=== PATIENT | male | born 1975 | race Caucasian/White ===

== ENCOUNTER 2016-03-05 13:31 | Emergency (ER) | payer MEDICAID ==
[2016-03-05] MEDS ORDERED: IBUPROFEN 800 MG TABLET PO STA (13:55)
[2016-03-05] MEDS ORDERED: IBUPROFEN 800 MG TABLET PO ONE (13:59)
[2016-03-05] MEDS ORDERED: AZITHROMYCIN 250 MG TABLET PO STA (14:51)
[2016-03-05] MEDS ORDERED: AZITHROMYCIN 250 MG TABLET PO ONE (14:58)
== END 2016-03-05 15:07 | disposition home or self-care (01) ==
DX: J18.9 Pneumonia, unspecified organism (principal); F17.210 Nicotine dependence, cigarettes, uncomplicated
CPT/HCPCS: 71020; 99283; 99284; A9270

== ENCOUNTER 2016-04-05 11:04 | Emergency (ER) | payer MEDICAID | END 2016-04-05 13:12 | disposition home or self-care (01) | DX: R05 Cough (principal) ==

== ENCOUNTER 2016-07-08 19:33 | Outpatient (CLI) | payer MEDICAID | END 2016-07-08 19:34 | disposition critical access hospital (66) | DX: R10.33 Periumbilical pain (principal); R11.2 Nausea with vomiting, unspecified | CPT/HCPCS: A0425; A0427 ==

== ENCOUNTER 2016-07-08 19:58 | Observation (INO) | payer MEDICAID ==
--- NOTE | 2016-07-08 20:14 | ED Physician Documentation ---
PD HPI ABD PAIN - Stated complaint Stated Complaint: ABD PAIN - Chief complaint Chief Complaint: Abd Pain - History obtained from History obtained from: Patient, EMS - History of Present Illness Timing - onset: How many days ago (3) Timing - duration: Days (3) Timing - details: Intermittant Pain level max: 10 Pain level now: 0 Quality: Pain Location: Periumbilical Radiation: Other (non-radiating) Improved by: Other (nothing) Worsened by: Other (nothing) Associated symptoms: Nausea, Vomiting (states feels like he wants to vomit, but "my neck just swells"). No: Fever Similar symptoms before: Has not had sx before Recently seen: Not recently seen Review of Systems Ten Systems: 10 systems reviewed and negative Constitutional: denies: Fever, Chills Nose: denies: Rhinorrhea / runny nose, Congestion Throat: denies: Sore throat Respiratory: denies: Cough GI: reports: Abdominal Pain, Nausea, Vomiting. denies: Diarrhea Skin: denies: Rash Musculoskeletal: denies: Neck pain, Back pain Neurologic: denies: Focal weakness, Numbness, Confused, Altered mental status, Headache PD PAST MEDICAL HISTORY - Past Medical History Past Medical History: Yes Cardiovascular: None Respiratory: Pneumonia Neuro: Fainting Endocrine/Autoimmune: None Musculoskeletal: Chronic back pain - Past Surgical History Past Surgical History: No - Present Medications Home Medications: Ambulatory Orders Medication Instructions Recorded Confirmed Azithromycin [Zithromax] 250 mg PO DAILY #6 tablet 03/05/16 Benzonatate [Tessalon] 100 mg PO TID PRN #20 capsule 04/05/16 guaiFENesin/DEXTROMETHORPHAN 10 ml PO Q6H PRN #120 ml 04/05/16 [Robitussin Dm] - Allergies Allergies/Adverse Reactions: Allergies Allergy/AdvReac Type Severity Reaction Status Date / Time divalproex sodium Allergy Unknown Verified 03/21/14 13:01 [From Depakote] phenytoin sodium * Allergy Unknown Verified 11/05/13 09:19 [From Dilantin] phenytoin sodium extended * Allergy Unknown Verified 11/05/13 09:19 [From Dilantin] - Social History Does the pt smoke?: Yes Smoking Status: Current every day smoker Does the pt drink ETOH?: No Does the pt have substance abuse?: No - Immunizations Immunizations are current?: No Immunizations: TDAP >10years/unknown - POLST Patient has POLST: No PD ED PE NORMAL - Vitals Vital signs reviewed: Yes - General General: Alert and oriented X 3, No acute distress, Well developed/nourished - HEENT HEENT: Moist mucous membranes - Neck Neck: Supple, no meningeal sign - Cardiac Cardiac: RRR, Strong equal pulses - Respiratory Respiratory: No respiratory distress, Clear bilaterally - Abdomen Abdomen: Soft, Non tender, Non distended - Back Back: No CVA TTP, No spinal TTP - Derm Derm: Warm and dry, No rash - Extremities Extremities: No edema - Neuro Neuro: Alert and oriented X 3 - Psych Psych: Normal mood, Normal affect Results - Vitals Vitals: Vital Signs - 24 hr 07/08/16 07/08/16 19:59 22:29 Temperature 37.1 C Heart Rate 80 75 Respiratory 18 18 Rate Blood Pressure 140/70 H 128/80 O2 Saturation 95 97 Oxygen O2 Source Room air - Labs Labs: Laboratory Tests 07/08/16 07/08/16 07/08/16 20:20 20:20 20:20 WBC 8.3 RBC 4.96 Hgb 14.7 Hct 44.3 MCV 89.2 MCH 29.6 MCHC 33.2 RDW 15.6 H Plt Count 287 MPV 8.1 Neut # 3.4 Lymph # 2.9 [place] # 1.0 Eos # 0.9 H Baso # 0.1 Absolute Nucleated RBC 0.00 Nucleated RBCs 0.0 PT 13.0 H INR 1.2 APTT 29.0 Sodium 140 Potassium 3.8 Chloride 105 Carbon Dioxide 28 Anion Gap 7.0 BUN 13 Creatinine 1.0 Estimated GFR (MDRD) 82 L Glucose 101 H Calcium 8.8 Total Bilirubin 2.8 H Direct Bilirubin AST 1236 H ALT 2120 H Alkaline Phosphatase 138 H Lactate Dehydrogenase Total Protein 5.8 L Albumin 3.6 Globulin 2.2 Albumin/Globulin Ratio 1.6 Lipase 33 Urine Color Urine Clarity Urine pH Ur Specific [place] Urine Protein Urine Glucose (UA) Urine Ketones Urine Occult Blood Urine Nitrite Urine Bilirubin Urine Urobilinogen Ur Leukocyte Esterase Ur Microscopic Review Urine Culture Comments Urine Opiates Screen Ur Oxycodone Screen Urine Methadone Screen Ur Propoxyphene Screen Acetaminophen Ur Barbiturates Screen Ur Tricyclics Screen Ur Phencyclidine Scrn Ur Amphetamine Screen U Methamphetamines Scrn U Benzodiazepines Scrn Urine Cocaine Screen U Cannabinoids Screen Ethyl Alcohol 07/08/16 07/08/16 07/08/16 20:20 22:30 22:30 WBC RBC Hgb Hct MCV MCH MCHC RDW Plt Count MPV Neut # Lymph # [place] # Eos # Baso # Absolute Nucleated RBC Nucleated RBCs PT INR APTT Sodium Potassium Chloride Carbon Dioxide Anion Gap BUN Creatinine Estimated GFR (MDRD) Glucose Calcium Total Bilirubin Direct Bilirubin AST ALT Alkaline Phosphatase Lactate Dehydrogenase 407 H Total Protein Albumin Globulin Albumin/Globulin Ratio Lipase Urine Color DARK YELLOW Urine Clarity CLEAR Urine pH 7.0 Ur Specific [place] 1.015 Urine Protein NEGATIVE Urine Glucose (UA) NEGATIVE Urine Ketones NEGATIVE Urine Occult Blood NEGATIVE Urine Nitrite NEGATIVE Urine Bilirubin SMALL H Urine Urobilinogen 4 H Ur Leukocyte Esterase NEGATIVE Ur Microscopic Review NOT INDICATED Urine Culture Comments NOT INDICATED Urine Opiates Screen NEGATIVE Ur Oxycodone Screen NEGATIVE Urine Methadone Screen NEGATIVE Ur Propoxyphene Screen NEGATIVE Acetaminophen Ur Barbiturates Screen NEGATIVE Ur Tricyclics Screen NEGATIVE Ur Phencyclidine Scrn NEGATIVE Ur Amphetamine Screen POSITIVE H U Methamphetamines Scrn NEGATIVE U Benzodiazepines Scrn NEGATIVE Urine Cocaine Screen NEGATIVE U Cannabinoids Screen NEGATIVE Ethyl Alcohol 07/08/16 22:35 WBC RBC Hgb Hct MCV MCH MCHC RDW Plt Count MPV Neut # Lymph # [place] # Eos # Baso # Absolute Nucleated RBC Nucleated RBCs PT INR APTT Sodium Potassium Chloride Carbon Dioxide Anion Gap BUN Creatinine Estimated GFR (MDRD) Glucose Calcium Total Bilirubin Direct Bilirubin 1.7 H AST ALT Alkaline Phosphatase Lactate Dehydrogenase Total Protein Albumin Globulin Albumin/Globulin Ratio Lipase Urine Color Urine Clarity Urine pH Ur Specific [place] Urine Protein Urine Glucose (UA) Urine Ketones Urine Occult Blood Urine Nitrite Urine Bilirubin Urine Urobilinogen Ur Leukocyte Esterase Ur Microscopic Review Urine Culture Comments Urine Opiates Screen Ur Oxycodone Screen Urine Methadone Screen Ur Propoxyphene Screen Acetaminophen < 10 L Ur Barbiturates Screen Ur Tricyclics Screen Ur Phencyclidine Scrn Ur Amphetamine Screen U Methamphetamines Scrn U Benzodiazepines Scrn Urine Cocaine Screen U Cannabinoids Screen Ethyl Alcohol < 5.0 - Rads (name of study) CT abd/pelvis Radiology: Prelim report reviewed, EMP read contemporaneously, See rad report ( Normal abdomen pelvis CT) RUQ US Radiology: Prelim report reviewed, EMP read contemporaneously, See rad report ( Contracted gallbladder without cholecystitis. Increased echogenicity and fatty liver) PD MEDICAL DECISION MAKING - ED course Complexity details: reviewed results, re-evaluated patient, considered differential, d/w patient, d/w transformation consultant ED course: Patient is a 40-year-old male who presents to the emergency department with 3 days of abdominal pain. Found to have significantly elevated liver function tests. No acute findings on CT. No acute findings on ultrasound. Unclear etiology of the hepatitis, possibly viral? He denies any IV drug use to me. Denies any drug use at all. He did begin to vomit in the emergency department and feels better after Zofran. IV fluids given. Will admit the patient for further evaluation and care of his acute liver toxicity. Discussed the case with Dr. Francis, hospitalist who accepts. This document was made in part using voice recognition software. While efforts are made to proofread this document, sound alike and grammatical errors may occur. Departure - Departure Disposition: 66 [facility] DC/Xfer Clinical Impression: Elevated liver enzymes, Hepatitis Abdominal pain Qualifiers: Abdominal location: epigastric Qualified Code(s): R10.13 - Epigastric pain Vomiting Qualifiers: Vomiting type: unspecified Vomiting Intractability: non-intractable Nausea presence: with nausea Qualified Code(s): R11.2 - Nausea with vomiting, unspecified Condition: Stable
[2016-07-08 20:34] LABS: BASOPHILS # (AUTO) 0.1 10^3/uL (0.0-0.1); BASOPHILS % (AUTO) 0.8 %; EOSINOPHILS # (AUTO) 0.9 10^3/uL (0.0-0.7); EOSINOPHILS % (AUTO) 10.3 %; HCT - HEMATOCRIT 44.3 % (42.0-52.0); HGB - HEMOGLOBIN 14.7 g/dL (14.0-18.0); LYMPHOCYTES # (AUTO) 2.9 10^3/uL (1.5-3.5); LYMPHOCYTES % (AUTO) 35.6 %; MEAN CORPUSCULAR HEMOGLOBIN 29.6 pg (27.0-31.0); MEAN CORPUSCULAR HGB CONC 33.2 g/dL (32.0-36.0); MEAN CORPUSCULAR VOLUME 89.2 fL (80.0-94.0); MEAN PLATELET VOLUME 8.1 fL (7.4-11.4); MONOCYTES % (AUTO) 12.1 %; NEUTROPHILS # (AUTO) 3.4 10^3/uL (1.5-6.6); NEUTROPHILS % (AUTO) 41.2 %; RED BLOOD COUNT 4.96 10^6/uL (4.70-6.10); RED CELL DISTRIBUTION WIDTH 15.6 % (12.0-15.0); UNCORRECTED WHITE BLOOD COUNT 8.3 x10^3/uL; WHITE BLOOD COUNT 8.3 x10^3/uL (4.8-10.8)
[2016-07-08 20:49] LABS: ALBUMIN/GLOBULIN RATIO 1.6 (1.0-2.2); BILIRUBIN,TOTAL 2.8 mg/dL (0.2-1.0); CALCIUM 8.8 mg/dL (8.5-10.3); POTASSIUM 3.8 mmol/L (3.5-5.0); TOTAL PROTEIN 5.8 g/dL (6.7-8.2)
[2016-07-08] MEDS ORDERED: IOPAMIDOL-300 100 ML VIAL IVP ONE (21:11)
--- NOTE | 2016-07-08 21:29 | CT Preliminary Report ---
Exam: CT Abdomen/Pelvis W/ IMPRESSION: Normal abdomen and pelvis CT. [facility] SITE ID: [id number]
--- NOTE | 2016-07-08 21:32 | CT Report ---
EXAM: CT ABDOMEN AND PELVIS EXAM DATE: 07/08/2016 09:11 PM. CLINICAL HISTORY: Periumbilical pain x3 days. COMPARISONS: None. TECHNIQUE: Routine helical CT imaging was performed through the abdomen and pelvis. IV contrast: 100 mL Isovue-300. Enteric contrast: No. Reconstructions: Coronal and sagittal. In accordance with CT protocol optimization, one or more of the following dose reduction techniques w ere utilized for this exam: automated exposure control, adjustment of mA and/or KV based on patient s ize, or use of iterative reconstructive technique. FINDINGS: Lung Bases: Unremarkable. Liver: Normal. No masses. Gallbladder/Bile Ducts: Unremarkable. Spleen: Normal. Pancreas: Normal. Adrenal Glands: Normal. Kidneys: Normal. No masses or hydronephrosis. Peritoneal Cavity/Bowel: Normal. No free fluid, free air or adenopathy. No masses or acute inflammato ry process. The appendix is well visualized and normal. Pelvic Organs: Normal. The bladder and visualized pelvic organs are within normal limits. Vasculature: No aneurysms or other significant abnormality. Bones: No significant abnormality. Other: None. IMPRESSION: Normal abdomen and pelvis CT. [facility] Referring Provider Line: [phone] SITE ID: [id number]
[2016-07-08 22:36] LABS: INR 1.2 (0.8-1.2)
[2016-07-08] MEDS ORDERED: SODIUM CHLORIDE 0.9% 1,000 ML IV ONE ×2 (22:47)
[2016-07-08] MEDS ORDERED: KETOROLAC 60 MG/2 ML VIAL IVP STA (22:47)
[2016-07-08] MEDS ORDERED: KETOROLAC 30 MG/ML VIAL ONE (22:50)
[2016-07-08 22:55] LABS: BILIRUBIN,URINE SMALL (NEGATIVE); UA CHARGE (STRIP ONLY) YES; UR CULTURE IF IND NOT INDICATED
[2016-07-08] MEDS ORDERED: ONDANSETRON 4 MG/2 ML VIAL ONE (22:56)
[2016-07-08] MEDS ORDERED: ONDANSETRON 4 MG/2 ML VIAL IVP STA (22:56)
[2016-07-08 22:57] LABS: BILIRUBIN,DIRECT 1.7 mg/dL (0.1-0.5)
[2016-07-08 23:02] LABS: ACETAMINOPHEN < 10 ug/mL (10-30)
--- NOTE | 2016-07-09 00:06 | Ultrasound Report ---
EXAM: ABDOMEN ULTRASOUND LIMITED, RUQ EXAM DATE: 07/08/2016 11:40 PM. CLINICAL HISTORY: RUQ pain, abnormal LFTs. COMPARISON: CT, 07/08/2016. TECHNIQUE: Real-time scanning was performed with static images obtained. FINDINGS: Liver: Echogenic, consistent with fatty infiltration. 16.7 cm. Main portal vein flow: Hepatopetal. Gallbladder: Contracted. No stones, definite wall thickening, or sonographic Vann's sign. Patient h ad been medicated. Biliary System: CBD measures 3.8 mm. No intrahepatic or extrahepatic ductal dilatation. Other: Right kidney measures 11.0 cm and appears normal. IMPRESSION: 1. Gallbladder is contracted but otherwise grossly unremarkable. No cholecystitis identified. 2. Common duct caliber is normal. 3. Fatty liver. [facility] Referring Provider Line: [phone] SITE ID: [id number]
[2016-07-09] MEDS ORDERED: ONDANSETRON 4 MG/2 ML VIAL IVP PRN (00:28)
[2016-07-09] MEDS ORDERED: SODIUM CHLORIDE FLUSH 0.9% 10 ML SYRINGE IVP PRN (00:28)
[2016-07-09] MEDS: SODIUM CHLORIDE 0.9% 1,000 ML IV SCH ×2 (00:49→07:21)
[2016-07-09] MEDS: FAMOTIDINE 20 MG/50 ML 50 ML IV SCH ×2 (01:50→08:52)
[2016-07-09 02:36] LABS: INR 1.2 (0.8-1.2); PT - PROTHROMBIN TIME 13.8 secs (9.9-12.6)
[2016-07-09 02:37] LABS: BASOPHILS # (AUTO) 0.1 10^3/uL (0.0-0.1); BASOPHILS % (AUTO) 1.3 %; EOSINOPHILS # (AUTO) 0.9 10^3/uL (0.0-0.7); EOSINOPHILS % (AUTO) 10.3 %; HCT - HEMATOCRIT 40.5 % (42.0-52.0); HGB - HEMOGLOBIN 13.6 g/dL (14.0-18.0); LYMPHOCYTES % (AUTO) 35.3 %; MEAN CORPUSCULAR HEMOGLOBIN 29.6 pg (27.0-31.0); MEAN CORPUSCULAR HGB CONC 33.6 g/dL (32.0-36.0); MEAN CORPUSCULAR VOLUME 88.3 fL (80.0-94.0); MEAN PLATELET VOLUME 8.2 fL (7.4-11.4); MONOCYTES % (AUTO) 11.4 %; NEUTROPHILS # (AUTO) 3.5 10^3/uL (1.5-6.6); NEUTROPHILS % (AUTO) 41.7 %; RED BLOOD COUNT 4.59 10^6/uL (4.70-6.10); RED CELL DISTRIBUTION WIDTH 15.8 % (12.0-15.0); UNCORRECTED WHITE BLOOD COUNT 8.4 x10^3/uL; WHITE BLOOD COUNT 8.4 x10^3/uL (4.8-10.8)
[2016-07-09 02:43] LABS: PARTIAL THROMBOPLASTIN TIME 29.5 secs (24.9-33.3)
[2016-07-09 02:51] LABS: ALBUMIN/GLOBULIN RATIO 1.6 (1.0-2.2); BILIRUBIN,TOTAL 2.8 mg/dL (0.2-1.0); CALCIUM 8.3 mg/dL (8.5-10.3); TOTAL PROTEIN 5.4 g/dL (6.7-8.2)
--- NOTE | 2016-07-09 02:58 | HISTORY & PHYSICAL EXAMINATION ---
DATE OF ADMISSION: 07/09/2016 PRIMARY CARE PROVIDER: JORGE Loja, [facility]. CHIEF COMPLAINT: Upper abdominal pain. HISTORY OF PRESENT ILLNESS: This is a 40-year-old male who presents with a 3-day history of upper to periumbilical abdominal pain. He has had some nausea with this, some vomiting, but minimal. Denies an y fevers, chills. Denies prior history of similar. Of note, he is somewhat of a poor historian. His l abs are significant for a white count of 8.3. INR 1.2, PTT of 29.0, BUN 13, creatinine 1.0, calculate d GFR 82, glucose 101, alkaline phosphatase is 138, ALT is 2120, AST is 1236, and total bilirubin is 2.8, lipase is 33. Urine tox screen is significant for positive for amphetamines, otherwise negative. LDH is 407, direct bilirubin is 1.7. Acetaminophen level is less than 10. Alcohol level is less than 5.0. The patient denies any significant history of alcohol use, but does admit to using methamphetam flores. Last notes that he used IV meth about a month ago. The patient does also admit to being homeles s and lives in his car. In the emergency room, CT of the abdomen and pelvis reveals normal abdomen an d pelvic CT. Ultrasound shows gallbladder is contracted, otherwise grossly normal. No cholecystitis i dentified. Common duct caliber is normal and fatty liver is present. PAST MEDICAL HISTORY 1. Significant for history of IV drug abuse with methamphetamine. 2. Recent treatment for pneumonia in 02/2016. 3. Chronic neck pain. MEDICATIONS UPON ADMISSION: None. ALLERGIES 1. DEPAKOTE. 2. DILANTIN. FAMILY MEDICAL HISTORY: No history of liver disease or inflammatory bowel disease. SOCIAL HISTORY: Homeless, lives in his car. Smoking about a pack per day. Alcohol, denies any signifi cant use. Does admit to IV drug use of methamphetamine. REVIEW OF SYSTEMS: Denies any fevers or chills. Denies any chest pain. Denies any alteration in bowel movements. He notes that his last bowel movement was 3 days ago. All other review of systems are rev iewed and are negative except for as in HPI. PHYSICAL EXAMINATION VITAL SIGNS: Temperature is afebrile, heart rate is 89, blood pressure 123/60, respiratory rate 18, r oom air saturation 96%. CONSTITUTIONAL: Slightly disheveled, middle-aged male in mild pain and distress. HEAD: Normocephalic, atraumatic. EYES: PERRLA-DC, EOMI. MOUTH: No lesions. NECK: No adenopathy. CHEST: Clear to auscultation. COR: Regular rate and rhythm, S1, S2. ABDOMEN: Soft. There is tenderness in the epigastrium and right upper quadrant. No rebound, no guardi ng. Bowel sounds are present. EXTREMITIES: No pedal edema. SKIN: No rashes. PSYCHIATRIC: Mood and affect are appropriate. NEUROLOGIC: He is alert and oriented x3. Motor strength is intact bilaterally. LABORATORY DATA: As above. Also to include white count 8.3, hematocrit 44.3, hemoglobin 14.7, MCV 89. 2, platelets 287 with 3.4 neutrophils. INR 1.2, PTT 29.0, sodium 140, potassium 3.8, chloride 105, bi carbonate 28, BUN 13, creatinine 1.0, calculated GFR 82, glucose 101, calcium 8.8, total bilirubin 2. 8, direct bilirubin 1.7, AST 1236, ALT 2120, alkaline phosphatase 138, LDH 407, total protein 5.8, al bumin 3.6, lipase 33. Urine: Small bilirubin, urobilinogen 4, specific gravity 1.015. Tylenol level l ess than 10. Positive urine drug screen, positive for amphetamine. Ethyl alcohol level less than 5.0. ASSESSMENT AND PLAN 1. Acute hepatitis secondary to unknown etiology. We are checking hepatitis A, B, C, IgM acute panel along with CMV and EBV. We will also check iron studies. Given his recent IV drug use, suspect will b e viral hepatitis. We will check daily labs along with daily PT, PTT. Check HIV. Ammonia level is pen ding. 2. Deep venous thrombosis prophylaxis. We will use SCDs. 3. CODE STATUS. The patient is FULL CODE. TIME SPENT: 60 minutes. JOB #: [id number] EXT JOB #:[id number]
[2016-07-09 03:09] LABS: IRON 177 ug/dL (45-182); TOTAL IRON BINDING CAPACITY 291 ug/dL (250-450); TRANSFERRIN 208 mg/dL (180-329)
[2016-07-09] MEDS: SODIUM CHLORIDE FLUSH 0.9% 10 ML SYRINGE IVP SCH ×2 (05:04→14:09)
[2016-07-09] MEDS ORDERED: KETOROLAC 15 MG/ML VIAL IVP PRN (05:09)
[2016-07-09] MEDS ORDERED: POLYETHYLENE GLYCOL 3350 17 GM PACKET PO SCH (09:00)
--- NOTE | 2016-07-09 11:31 | Discharge Plan ---
Discharge Plan Disposition: 01 Home, Self Care Condition: Stable Prescriptions: Ondansetron HCl [Zofran] 4 mg PO Q8H PRN #10 tablet PRN Reason: Nausea / Vomiting Diet: Regular Activity Restrictions: No Restrictions Shower Restrictions: No Driving Restrictions: No Additional Instructions or Follow Up instructions: Hepatitis (inflammation of the liver) You came to the hospital pain in your upper and mid abdomen and had some nausea and vomiting with this. Part of the work up for these symptoms included blood work and a CT of the belly. The lab work showed high liver enzymes (hepatitis) The CT of the belly showed no acute findings of your gall bladder, and no suggestion of stones blocking any bile ducts. This hepatitis could be infectious (blood work was sent for Hepatitis A, B, and C and 2 other viruses (CMV, EBV). We do not know the result yet (see below) or it can be due to drugs (amphetamine, meth, tylenol (you did not have an elevated tylenol level) For the nausea, you can have zofran if needed (prescription). You tolerated food here with out nausea You were constipated and got 2 doses of miralax Take over the counter colace twice / day or over the counter senna to avoid constipation if you are constipated You may not have much of an appetite; eat small frequent meals if not tolerating 3 large meals Avoid any Tylenol product (your tylenol level was low, so it does not look like tylenol CAUSED this hepatitis, but could bother an inflamed liver No meth (that can bother the liver too) No alcohol (can bother the liver) No IV drugs Follow up with Gertrude Yepez (or other provider at that clinic) to find out the results of your hepatitis work up blood work (Pending Hepatitis A , B, C work up and CMV nd EBV) (the following Dr will know what this means. No Smoking: If you smoke, Please STOP! Call for help. Follow-up with: Gertrude Yepez ARNP [Provider Admit Priv/Credential] - 1-2 Days (follow up on hepatitis work up)
[2016-07-09] MEDS ORDERED: POLYETHYLENE GLYCOL 3350 17 GM PACKET PO ONE (13:46)
[2016-07-09 14:06] VITALS: BP 127/77
--- NOTE | 2016-07-11 08:10 | DISCHARGE SUMMARY ---
DATE OF ADMISSION: 07/09/2016 DATE OF DISCHARGE: 07/09/2016 PRIMARY PROVIDER: JORGE Loja DISCHARGE DIAGNOSES 1. Hepatitis with hepatitis serologies still pending. 2. Transaminitis. 3. History of intravenous drug use. 4. Constipation. CONSULTATIONS: None. PROCEDURES: None. DIAGNOSTIC IMAGING STUDIES 1. CT scan of the abdomen and pelvis done 07/08/2016, showed normal abdomen and pelvis. 2. Ultrasound of the abdomen 07/08/2016, showed contracted gallbladder. Otherwise grossly unremarkable. No cholecystitis. Common duct caliber normal. Fatty liver. Of note, the fatty liver was not commented on, on the CT. DIAGNOSTIC LABORATORY STUDIES: CBC: White count 8.4, hemoglobin 13.6, hematocrit 40.5, platelets 248,000. INR 1.2 on 2 checks. Chemistries: Sodium 140 , potassium 3.8, chloride 105, bicarbonate 28, BUN 13, creatinine 1.0, glucose 101, total bilirubin 2.8 with a direct bilirubin of 1.7. Initial AST and ALT were 1236 and 2120, respectively. A recheck approximately 4 hours later was improving already with an AST of 1066 and an ALT of 1849. Initial alkaline phosphorus was 138, recheck was 114. Ammonia level was 41.4. Iron studies showed iron 177, TIBC 291, percent saturation 61, and transferrin 208. Urinalysis was unremarkable other than small bilirubin and for urobilinogen. Color was dark yellow. Toxicology was notable for a less than 10 mcg/mL Tylenol level, and positive amphetamines. No alcohol detected. He had serology sent, IgM for hepatitis A, B and C; these are still pending 1 day after discharge and also EBV and CMV were sent, which are still pending, and HIV was sent and is nonreactive. BRIEF HOSPITAL COURSE BY PROBLEM 1. Hepatitis. The patient is a 40-year-old gentleman who is currently homeless and lives in his vehicle. He does have a history of IV drug use and does use methamphetamines. No tatoos. He presented with abdominal pain. His laboratory studies were remarkable for transaminitis with an AST and ALT of 1236 AST and 2120 ALT, with mildly elevated bilirubin with 1.7 of the bilirubin being direct. His INR was in normal range. His albumin was also in normal range. There was no significant leukocytosis. He did not have an alcohol level and had not taken any other obvious hepatotoxin other than possibly methamphetamine ( tox screen positive for methamphetamine) although he says he last used it about a month ago. He denies ever having shared needles, he says he is always "clean. " CT of the abdomen and pelvis showed no hepatic abnormality (nor other acute finding) although RUQ ultrasound suggestive of fatty liver. A recheck of his transaminases and alkaline phosphatase was done approximately 4 hours later and those numbers were already improving modestly. Hepatitis titers were sent for hepatitis A, B, and C IgM levels as well as for EBV and CMV, these are all pending. He also had blood sent for HIV and that is negative. He was tolerating oral intake and was discharged home later in the day, having tolerated 2 meals. He is aware to follow up with Gertrude Yepez to follow up on the hepatitis titers on whether he might have a bloodborne hepatitis, hopefully that would not be the case. He is also aware in the meantime not to use any Tylenol-containing product or other potentially hepatotoxic agent, such as further meth use. He is discharged with a prescription for a small number of Zofran if needed for nausea ; however, he was tolerating food. 2. Constipation. He complained of not having moved his bowels x2 days, although he felt like "he almost was able to go." He refused a suppository. He did have 2 doses of MiraLax here. There is no other medication for discharge. PHYSICAL EXAMINATION AT DISCHARGE VITAL SIGNS: He is afebrile at 36.6, heart rate 58, blood pressure 127/77, respiratory rate 19 per minute, 97% room air oxygenation. GENERAL: He is a somewhat disheveled man who appears older than stated age of 40. He is alert, oriented, appropriate, somewhat vague and inconsistent in reporting his history of drug use. He is otherwise pleasant and cooperative. HEENT: His pupils are equal. His sclerae are minimally icteric. Oral mucosa is moist. NECK: Some discomfort in the posterior neck area, which he reports is due to chronic neck pain. CHEST: Clear to auscultation with unlabored respirations. ABDOMEN: Notably not specifically tender in the right upper quadrant with no particular hepatomegaly appreciable. No tender liver edge. He does have quiet, active bowel sounds. EXTREMITIES: He does not have any peripheral edema. JOB #: [id number] EXT JOB #:[id number] APARNA
[2016-07-12 14:11] LABS: CMV DNA QN RT PCR <200 IU/mL (())
== END 2016-07-09 14:55 | disposition home or self-care (01) ==
LOC: EDUNIT# → ED 19:58 → MS 07-09 00:28
PROVIDERS: ADMIT Specialist; ATTEND Nurse Practitioner
DX: K75.9 Inflammatory liver disease, unspecified (principal); R74.0 Nonspecific elevation of levels of transaminase and lactic acid dehydrogenase [LDH]; K59.00 Constipation, unspecified; K76.0 Fatty (change of) liver, not elsewhere classified; G89.29 Other chronic pain; M54.2 Cervicalgia; F17.210 Nicotine dependence, cigarettes, uncomplicated; Z59.0 Homelessness; Z87.01 Personal history of pneumonia (recurrent); Z87.898 Personal history of other specified conditions
CPT/HCPCS: 36415; 74177; 76705; 80053; 80074; 80306; 80307; 80320; 81003; 82140; 82248; 83540; 83615; 83690; 84466; 85025; 85610; 85730; 86665; 87389; 87497; 96361; 96365; 96366; 96375; 96376; 99234; 99284; 99285; A9270; Q9967; 81001; 87086; 87341; 96374

== ENCOUNTER 2018-01-09 10:19 | Outpatient (CLI) | payer MEDICAID ==
[2018-01-09 18:15] LABS: BASOPHILS # (AUTO) 0.1 10^3/uL (0.0-0.1); BASOPHILS % (AUTO) 1.2 %; EOSINOPHILS # (AUTO) 0.6 10^3/uL (0.0-0.7); EOSINOPHILS % (AUTO) 7.3 %; HGB - HEMOGLOBIN 14.8 g/dL (14.0-18.0); LYMPHOCYTES # (AUTO) 4.1 10^3/uL (1.5-3.5); LYMPHOCYTES % (AUTO) 46.9 %; MEAN CORPUSCULAR HEMOGLOBIN 30.4 pg (27.0-31.0); MEAN CORPUSCULAR VOLUME 92.3 fL (80.0-94.0); MEAN PLATELET VOLUME 7.4 fL (7.4-11.4); MONOCYTES # (AUTO) 0.7 10^3/uL (0.0-1.0); MONOCYTES % (AUTO) 7.8 %; NEUTROPHILS # (AUTO) 3.2 10^3/uL (1.5-6.6); NEUTROPHILS % (AUTO) 36.8 %; PLT - PLATELET COUNT 371 10^3/uL (130-450); RED BLOOD COUNT 4.88 10^6/uL (4.70-6.10); RED CELL DISTRIBUTION WIDTH 14.1 % (12.0-15.0); WHITE BLOOD COUNT 8.7 x10^3/uL (4.8-10.8)
[2018-01-09 18:45] LABS: ALBUMIN 4.4 g/dL (3.2-5.5); ALBUMIN/GLOBULIN RATIO 1.3 (1.0-2.2); ALKALINE PHOSPHATASE 72 IU/L (42-121); ALT ALANINE AMINOTRANSFERASE 190 IU/L (10-60); AST ASPARTATE AMINOTRANSFERASE 88 IU/L (10-42); BILIRUBIN,TOTAL 0.9 mg/dL (0.2-1.0); BUN - BLOOD UREA NITROGEN 12 mg/dL (6-20); CALCIUM 9.2 mg/dL (8.5-10.3); CARBON DIOXIDE - CO2 29 mmol/L (21-32); CHLORIDE 101 mmol/L (101-111); CHOL/HDL RATIO 4.3 (<5.0); CHOLESTEROL 201 mg/dL; CREATININE 0.8 mg/dL (0.6-1.2); GFR - MDRD 105 (>89); GLUCOSE 87 mg/dL (70-100); HDL CHOLESTEROL 47 mg/dL; LDL CHOLESTEROL,CALCULATED 136 mg/dL; LDL/HDL RATIO 2.9 (<3.6); SODIUM 138 mmol/L (135-145); TOTAL PROTEIN 7.8 g/dL (6.7-8.2); VLDL CHOLESTEROL 18 mg/dL
[2018-01-09 21:36] LABS: THYROID STIMULATING HORMONE 0.97 uIU/mL (0.34-5.60)
[2018-01-09 21:38] LABS: FREE T4 (FREE THYROXINE) 0.78 ng/dL (0.58-1.64)
== END 2018-01-09 10:20 | disposition home or self-care (01) ==
LOC: LAB.F 10:19
PROVIDERS: ATTEND Internal Medicine Nephrology
DX: R55 Syncope and collapse (principal)
CPT/HCPCS: 36415; 80050; 80061; 83721; 84439

== ENCOUNTER 2018-10-12 01:49 | Emergency (ER) | payer MEDICAID ==
[2018-10-12] MEDS ORDERED: TETANUS/DIPHTHERIA/PERTUSSIS 0.5 ML SYRINGE IM ONE (02:07)
--- NOTE | 2018-10-12 02:10 | ED Physician Documentation ---
History of Present Illness - Stated complaint Stated Complaint: R THUMB LAC - History obtained from History obtained from: Patient - History of Present Illness Pain level max: 3 Pain level now: 3 - Additonal information Additional information: 42-year-old male, right-handed accidentally cut his right thumb approximately 4 hours ago. He wrapped it in a bandage, Tegaderm, tape tightly around the area. Bleeding now controlled. Unknown last tetanus. He is right-handed. No numbness or tingling. Nothing makes it worse. Better with pressure. He also states that he has had left knee pain for the past 2 weeks since bumping into a metal chair. Worse with bending and better with standing. Review of Systems Constitutional: denies: Fever GI: denies: Vomiting, Diarrhea Skin: denies: Rash Musculoskeletal: denies: Neck pain, Back pain PD PAST MEDICAL HISTORY - Past Medical History Past Medical History: Yes Cardiovascular: None Respiratory: Pneumonia Endocrine/Autoimmune: None, Other GI: None : None Psych: Post traumatic stress disorder Musculoskeletal: Chronic back pain - Past Surgical History Past Surgical History: No - Present Medications Home Medications: Ambulatory Orders Medication Instructions Recorded Confirmed Methocarbamol [Robaxin] 1,000 mg PO BID 10/12/18 10/12/18 - Allergies Allergies/Adverse Reactions: Allergies Allergy/AdvReac Type Severity Reaction Status Date / Time divalproex sodium Allergy Unknown Verified 10/12/18 02:10 [From Depakote] phenytoin sodium * Allergy Unknown Verified 10/12/18 02:10 [From Dilantin] phenytoin sodium extended * Allergy Unknown Verified 10/12/18 02:10 [From Dilantin] - Social History Does the pt smoke?: Yes Smoking Status: Current every day smoker Does the pt drink ETOH?: No Does the pt have substance abuse?: No - Immunizations Immunizations are current?: No Immunizations: TDAP >10years/unknown - POLST Patient has POLST: No PD ED PE NORMAL - Vitals Vital signs reviewed: Yes - General General: Alert and oriented X 3, No acute distress, Well developed/nourished - Neck Neck: Supple, no meningeal sign - Derm Derm: Warm and dry - Extremities Extremities: Normal ROM s pain (Mild bruising to the distal aspect of the left thigh, just above the knee. No bony tenderness. ACL, MCL, PCL, LCL are intact. No swelling.), Other (2 cm flap laceration to the DIP joint of the right thumb, lateral aspect. Neurovascular intact. No active bleeding. Thin flap) - Neuro Neuro: Alert and oriented X 3 - Psych Psych: Normal mood, Normal affect Results - Vitals Vitals: Vital Signs - 24 hr 10/12/18 10/12/18 02:08 02:30 Temperature 36.6 C Heart Rate 73 71 Respiratory 16 16 Rate Blood Pressure 140/99 H 123/78 O2 Saturation 97 96 Oxygen O2 Source Room air Procedures - Laceration (location) R thumb Wound type: Flap, Superficial, Clean Neurovascular status: Sensory intact, Motor intact, Vascular intact Tendon involvement: Tendon intact Wound Preparation: Irrigated copiously NS Skin layer closure: Dermabond, Steri strips Other: Patient tolerated well, No complications, Neurovascular intact, Dressing applied, Tetanus booster given (tdap) Complexity: Simple PD MEDICAL DECISION MAKING - ED course Complexity details: considered differential, d/w patient ED course: Laceration of the right thumb. Repaired with Dermabond Steri-Strips. Tdap given. Warnings of infection and instructions on wound care given at bedside. Also counseled on how to minimize scarring. Patient also with a knee contusion. No evidence of acute fracture. No joint effusion. No bony tenderness. We will continue supportive care for this. Normal gait patient counseled regarding signs and symptoms for which I believe and urgent re-evaluation would be necessary. Patient with good understanding of and agreement to plan and is comfortable going home at this time This document was made in part using voice recognition software. While efforts are made to proofread this document, sound alike and grammatical errors may occur. Departure - Departure Disposition: 01 Home, Self Care Clinical Impression: Finger laceration Qualifiers: Encounter type: initial encounter Finger: thumb Damage to nail status: without damage Foreign body presence: without foreign body Laterality: left Qualified Code(s): S61.012A - Laceration without foreign body of left thumb without damage to nail, initial encounter Contusion, lower leg Qualifiers: Encounter type: initial encounter Laterality: right Qualified Code(s): S80.11XA - Contusion of right lower leg, initial encounter Condition: Good Instructions: ED Contusion Lower Ext, ED Laceration Hand Follow-Up: Your,doctor within 3 days [Other] Comments: Remove the finger splint in 5 to 7 days. The glue will fall off on its own. Follow-up with your doctor in 3 to 4 days for a wound check. Return if you notice redness, swelling or drainage from the wound. The bruising of your knee may take 2 to 4 weeks to heal. You can use Motrin or Tylenol as needed for pain for this. You are given a tetanus shot tonight. The glue will dissolve and fall off on its own. Discharge Date/Time: 10/12/18 02:35
[2018-10-12 02:34] VITALS: BP 123/78
== END 2018-10-12 02:35 | disposition home or self-care (01) ==
LOC: ED 01:49
DX: S61.011A Laceration without foreign body of right thumb without damage to nail, initial encounter (principal); W26.0XXA Contact with knife, initial encounter; Y93.89 Activity, other specified; S80.02XA Contusion of left knee, initial encounter; W22.03XA Walked into furniture, initial encounter; Z23 Encounter for immunization; F17.200 Nicotine dependence, unspecified, uncomplicated
CPT/HCPCS: 12001; 90471

== ENCOUNTER 2019-06-23 19:57 | Emergency (ER) | payer MEDICAID ==
[2019-06-23] MEDS ORDERED: LIDOCAINE 1% 2 ML VIAL MC ONE (20:32)
[2019-06-23] MEDS ORDERED: SULFAMETH/TRIMETH DS 800/160 MG TABLET PO STA (20:32)
[2019-06-23] MEDS ORDERED: cefTRIAXone 1 GM VIAL IM STA (20:32)
--- NOTE | 2019-06-23 20:37 | ED Physician Documentation ---
History of Present Illness - Stated complaint Stated Complaint: RT LEG PX - Chief complaint Chief Complaint: Ext Problem - History obtained from History obtained from: Patient - History of Present Illness Timing: Yesterday Pain level max: 9 Pain level now: 9 - Additonal information Additional information: Patient with an abscess to the right upper thigh. Noticed that yesterday. He states that he scratched it and there was purulent drainage earlier today. Now increasing redness and swelling. Denies any drug use. No fevers. Review of Systems Constitutional: denies: Fever, Chills GI: denies: Vomiting, Diarrhea PD PAST MEDICAL HISTORY - Past Medical History Cardiovascular: None Respiratory: Pneumonia Endocrine/Autoimmune: None, Other GI: None : None Psych: Post traumatic stress disorder Musculoskeletal: Chronic back pain - Past Surgical History Past Surgical History: No - Present Medications Home Medications: Ambulatory Orders Medication Instructions Recorded Confirmed methocarbamoL [Robaxin] 1,000 mg PO BID 10/12/18 10/12/18 Cephalexin [Keflex] 500 mg PO Q6H #40 capsule 06/23/19 Sulfamethox/Trimeth 800/160 1 each PO BID #20 tablet 06/23/19 [Bactrim Ds 800/160] - Allergies Allergies/Adverse Reactions: Allergies Allergy/AdvReac Type Severity Reaction Status Date / Time divalproex sodium Allergy Unknown Verified 10/12/18 02:10 [From Depakote] phenytoin sodium * Allergy Unknown Verified 10/12/18 02:10 [From Dilantin] phenytoin sodium extended * Allergy Unknown Verified 10/12/18 02:10 [From Dilantin] - Social History Does the pt smoke?: Yes Smoking Status: Current every day smoker Does the pt drink ETOH?: No Does the pt have substance abuse?: No - Immunizations Immunizations are current?: No Immunizations: TDAP >10years/unknown - POLST Patient has POLST: No PD ED PE NORMAL - Vitals Vital signs reviewed: Yes - General General: Alert and oriented X 3, No acute distress - HEENT HEENT: Moist mucous membranes - Derm Derm: Warm and dry - Extremities Extremities: Other (3 x 3 cm indurated area to the proximal right thigh, anterior aspect. No drainage. Bedside ultrasound reveals minimal purulent fluid inside.) - Neuro Neuro: Alert and oriented X 3 Results - Vitals Vitals: Vital Signs - 24 hr 06/23/19 20:18 Temperature 37.1 C Heart Rate 91 Respiratory 16 Rate Blood Pressure 146/89 H O2 Saturation 98 Oxygen O2 Source Room air PD MEDICAL DECISION MAKING - ED course Complexity details: considered differential, d/w patient ED course: Patient with a right thigh abscess that spontaneously drained before coming in. There is very little fluid in the abscess currently on ultrasound. Therefore we will give him a dose of Rocephin now, place him on Bactrim and Keflex for home. He will return in 24 to 48 hours for wound check, if not improved we will drain the abscess at that time. Patient counseled regarding signs and symptoms for which I believe and urgent re-evaluation would be necessary. Patient with good understanding of and agreement to plan and is comfortable going home at this time This document was made in part using voice recognition software. While efforts are made to proofread this document, sound alike and grammatical errors may occur. Departure - Departure Disposition: 01 Home, Self Care Clinical Impression: Abscess Condition: Good Instructions: ED Staph Infec Abx Tx Only Follow-Up: Your,doctor in 2 days [Other] Prescriptions: Cephalexin [Keflex] 500 mg PO Q6H #40 capsule Sulfamethox/Trimeth 800/160 [Bactrim Ds 800/160] 1 each PO BID #20 tablet Comments: Take all antibiotics until gone. Return if you worsen. You need to either be seen here or with your doctor in 2 days for a wound check. Return sooner if you are worsening, including fevers, increasing pain or swelling.
[2019-06-23] MEDS ORDERED: BACITRACIN ZINC OINT 1 PACKET TOP STA (20:47)
[2019-06-23 21:04] VITALS: BP 148/90
== END 2019-06-23 21:00 | disposition home or self-care (01) ==
LOC: ED 19:57
DX: L02.415 Cutaneous abscess of right lower limb (principal); F17.200 Nicotine dependence, unspecified, uncomplicated
CPT/HCPCS: 96372; 99283; 99284; A9270

== ENCOUNTER 2019-12-29 00:39 | Outpatient (CLI) | payer MEDICAID | END 2019-12-29 00:40 | disposition critical access hospital (66) | LOC: EMS 00:39 | PROVIDERS: ATTEND Surgery | DX: R45.851 Suicidal ideations (principal) | CPT/HCPCS: A0425; A0429; A0999 ==

== ENCOUNTER 2019-12-29 01:15 | Emergency (ER) | payer MEDICAID ==
--- NOTE | 2019-12-29 01:37 | ED Physician Documentation ---
PD HPI MHE - Stated complaint Stated Complaint: SA - History obtained from History obtained from: Patient - History of Present Illness Primary symptom: Self harm - cut - Additional information Additional information: 44-year-old man with past medical history of methamphetamine abuse, IV drug use, undomiciled in the past, presents with Abrasion of right neck. EMS was called by the patient after he reportedly stabbed himself in the neck with tweezers. On scene patient was intermittently conversant, clutching his neck. He was found to have abrasions to his right lateral neck that were not bleeding. He was in no respiratory distress at that time. In the ED he is speaking in full sentences but noncompliant with history. Multiple superficial abrasions noted to R neck. Bedside ultrasound of the neck reveals no hematoma and no compromise of vascular structures. Review of Systems Unable to obtain: Uncooperative PD PAST MEDICAL HISTORY - Past Medical History Cardiovascular: None Respiratory: Pneumonia Endocrine/Autoimmune: None, Other GI: None : None Psych: Post traumatic stress disorder Musculoskeletal: Chronic back pain - Past Surgical History Past Surgical History: No - Present Medications Home Medications: Ambulatory Orders Medication Instructions Recorded Confirmed methocarbamoL [Robaxin] 1,000 mg PO BID 10/12/18 10/12/18 Cephalexin [Keflex] 500 mg PO Q6H #40 capsule 06/23/19 Sulfamethox/Trimeth 800/160 1 each PO BID #20 tablet 06/23/19 [Bactrim Ds 800/160] - Allergies Allergies/Adverse Reactions: Allergies Allergy/AdvReac Type Severity Reaction Status Date / Time divalproex sodium Allergy Unknown Verified 12/29/19 01:41 [From Depakote] phenytoin sodium * Allergy Unknown Verified 12/29/19 01:41 [From Dilantin] phenytoin sodium extended * Allergy Unknown Verified 12/29/19 01:41 [From Dilantin] - Social History Does the pt smoke?: Yes Smoking Status: Current every day smoker Does the pt drink ETOH?: No Does the pt have substance abuse?: No - Immunizations Immunizations are current?: No Immunizations: TDAP >10years/unknown - POLST Patient has POLST: No PD ED PE NORMAL - Vitals Vital signs reviewed: Yes - General General: Other (eye opening spontaneously, speaking intermittently, but uncooperative) - HEENT HEENT: Atraumatic, PERRL, EOMI - Neck Neck: Supple, no meningeal sign, No bruit, Other (Multiple superficialMultiple superficial abrasions of the right lateral neck without evidence of vascular compromise. Hemostatic) - Cardiac Cardiac: RRR - Respiratory Respiratory: No respiratory distress, Clear bilaterally - Abdomen Abdomen: Non tender, Non distended - Male Male : Deferred - Rectal Rectal: Deferred - Back Back: No spinal TTP - Derm Derm: Normal color, Warm and dry - Extremities Extremities: No deformity - Neuro Neuro: Other (Altered sensorium. Patient eye-opening spontaneously speaking in full sentences, moving all extremities spontaneously. apparently responding to internal stimuli.) - Psych Psych: Other (clinically Intoxicated) Results - Vitals Vitals: Vital Signs - 24 hr 12/29/19 12/29/19 12/29/19 01:36 01:41 08:59 Temperature 36.8 C 36.8 C 37.2 C Heart Rate 80 80 89 Respiratory 18 18 15 Rate Blood Pressure 151/93 H 151/93 H 146/82 H O2 Saturation 100 100 98 12/29/19 12/29/19 15:48 20:04 Temperature 37 C 37.2 C Heart Rate 86 83 Respiratory 16 15 Rate Blood Pressure 143/90 H 136/76 H O2 Saturation 99 96 Oxygen O2 Source Room air - Labs Labs: Laboratory Tests 12/29/19 12/29/19 12/29/19 06:32 12:15 12:15 WBC 12.6 H RBC 5.04 Hgb 15.4 Hct 45.0 MCV 89.3 MCH 30.6 MCHC 34.2 RDW 13.2 Plt Count 370 MPV 8.7 Neut # (Auto) 8.4 H Lymph # (Auto) 2.5 [place] # (Auto) 1.0 Eos # (Auto) 0.4 Baso # (Auto) 0.1 Absolute Nucleated RBC 0.00 Nucleated RBC % 0.0 Sodium 140 Potassium 3.5 Chloride 100 L Carbon Dioxide 27 Anion Gap 13.0 BUN 10 Creatinine 1.0 Estimated GFR (MDRD) 80 L Glucose 122 H Calcium 9.0 Total Bilirubin 0.9 AST 35 ALT 66 H Alkaline Phosphatase 61 Total Protein 6.7 Albumin 3.8 Globulin 2.9 Albumin/Globulin Ratio 1.3 Lipase 34 TSH Urine Color YELLOW Urine Clarity CLEAR Urine pH 6.0 Ur Specific [place] 1.025 Urine Protein 100 H Urine Glucose (UA) NEGATIVE Urine Ketones NEGATIVE Urine Occult Blood NEGATIVE Urine Nitrite NEGATIVE Urine Bilirubin NEGATIVE Urine Urobilinogen 0.2 (NORMAL) Ur Leukocyte Esterase NEGATIVE Urine RBC 0-5 Urine WBC 0-3 Ur Squamous Epith Cells RARE Squamous Urine Bacteria Rare Ur Microscopic Review INDICATED Urine Culture Comments NOT INDICATED Salicylates < 6.0 Urine Opiates Screen NEGATIVE Ur Oxycodone Screen NEGATIVE Urine Methadone Screen NEGATIVE Ur Propoxyphene Screen NEGATIVE Acetaminophen < 10 L Ur Barbiturates Screen NEGATIVE Ur Tricyclics Screen NEGATIVE Ur Phencyclidine Scrn NEGATIVE Ur Amphetamine Screen POSITIVE H U Methamphetamines Scrn POSITIVE H U Benzodiazepines Scrn NEGATIVE Urine Cocaine Screen NEGATIVE U Cannabinoids Screen NEGATIVE Ethyl Alcohol < 5.0 SARS-CoV-2 (PCR) 12/29/19 12/29/19 12:15 17:00 WBC RBC Hgb Hct MCV MCH MCHC RDW Plt Count MPV Neut # (Auto) Lymph # (Auto) [place] # (Auto) Eos # (Auto) Baso # (Auto) Absolute Nucleated RBC Nucleated RBC % Sodium Potassium Chloride Carbon Dioxide Anion Gap BUN Creatinine Estimated GFR (MDRD) Glucose Calcium Total Bilirubin AST ALT Alkaline Phosphatase Total Protein Albumin Globulin Albumin/Globulin Ratio Lipase TSH 0.56 Urine Color Urine Clarity Urine pH Ur Specific [place] Urine Protein Urine Glucose (UA) Urine Ketones Urine Occult Blood Urine Nitrite Urine Bilirubin Urine Urobilinogen Ur Leukocyte Esterase Urine RBC Urine WBC Ur Squamous Epith Cells Urine Bacteria Ur Microscopic Review Urine Culture Comments Salicylates Urine Opiates Screen Ur Oxycodone Screen Urine Methadone Screen Ur Propoxyphene Screen Acetaminophen Ur Barbiturates Screen Ur Tricyclics Screen Ur Phencyclidine Scrn Ur Amphetamine Screen U Methamphetamines Scrn U Benzodiazepines Scrn Urine Cocaine Screen U Cannabinoids Screen Ethyl Alcohol SARS-CoV-2 (PCR) NOT DETECTED PD MEDICAL DECISION MAKING - ED course ED course: 44-year-old man with past medical history methamphetamine abuse presents with possible suicide attempt with self-injurious behavior to right lateral neck. No apparent significant injury. Will monitor in the ED and if medically cleared, DCR. dcr recommending IPP placement. patient calm, medically cleared for transfer at this time. Departure - Departure Clinical Impression: Suicidal ideation, Self-injurious behavior, Methamphetamine abuse, Alcohol abuse Condition: Stable
[2019-12-29 06:37] LABS: MUDS CUTOFF CONCENTRATIONS CUTOFF CONC BELOW:
[2019-12-29 06:43] LABS: BILIRUBIN,URINE NEGATIVE (NEGATIVE); GLUCOSE, URINE (UA) NEGATIVE (NEGATIVE); KETONES,URINE (UA) NEGATIVE (NEGATIVE); LEUKOCYTE ESTERASE, URINE NEGATIVE (NEGATIVE); NITRITE,URINE NEGATIVE (NEGATIVE); OCCULT BLOOD,URINE NEGATIVE (NEGATIVE); PROTEIN,URINE 100 mg/dL (NEGATIVE); UROBILINOGEN,URINE 0.2 (NORMAL) E.U./dL (NORMAL)
[2019-12-29 06:56] LABS: AMPHETAMINE SCREEN,URINE POSITIVE (NEGATIVE); BENZODIAZEPINES SCREEN, URINE NEGATIVE (NEGATIVE); COCAINE SCREEN URINE NEGATIVE (NEGATIVE); METHADONE SCREEN, URINE NEGATIVE (NEGATIVE); METHAMPHETAMINES SCREEN, URINE POSITIVE (NEGATIVE); OPIATE SCREEN, URINE NEGATIVE (NEGATIVE); OXYCODONE SCREEN, URINE NEGATIVE (NEGATIVE); PROPOXYPHENE SCREEN, URINE NEGATIVE (NEGATIVE); TRICYCLIC ANTIDEPRESSANT,URINE NEGATIVE (NEGATIVE)
[2019-12-29 07:10] LABS: CLARITY,URINE CLEAR (CLEAR)
[2019-12-29 07:11] LABS: BACTERIA,URINE Rare /HPF (None Seen); RBC,URINE 0-5 /HPF (0-5); SQUAMOUS EPITHELIAL CELL,UR RARE Squamous (<= Few)
[2019-12-29 12:24] LABS: BASOPHILS # (AUTO) 0.1 10^3/uL (0.0-0.1); EOSINOPHILS # (AUTO) 0.4 10^3/uL (0.0-0.7); EOSINOPHILS % (AUTO) 3.5 %; HGB - HEMOGLOBIN 15.4 g/dL (14.0-18.0); LYMPHOCYTES # (AUTO) 2.5 10^3/uL (1.5-3.5); LYMPHOCYTES % (AUTO) 20.1 %; MEAN CORPUSCULAR HEMOGLOBIN 30.6 pg (27.0-31.0); MEAN CORPUSCULAR HGB CONC 34.2 g/dL (32.0-36.0); MEAN CORPUSCULAR VOLUME 89.3 fL (80.0-94.0); MEAN PLATELET VOLUME 8.7 fL (7.4-11.4); MONOCYTES % (AUTO) 7.6 %; NEUTROPHILS # (AUTO) 8.4 10^3/uL (1.5-6.6); NEUTROPHILS % (AUTO) 67.2 %; PLT - PLATELET COUNT 370 10^3/uL (130-450); RED BLOOD COUNT 5.04 10^6/uL (4.70-6.10); RED CELL DISTRIBUTION WIDTH 13.2 % (12.0-15.0); WHITE BLOOD COUNT 12.6 x10^3/uL (4.8-10.8)
[2019-12-29 12:38] LABS: ACETAMINOPHEN < 10 ug/mL (10-30); ALBUMIN 3.8 g/dL (3.2-5.5); ALBUMIN/GLOBULIN RATIO 1.3 (1.0-2.2); ALKALINE PHOSPHATASE 61 IU/L (42-121); ALT ALANINE AMINOTRANSFERASE 66 IU/L (10-60); AST ASPARTATE AMINOTRANSFERASE 35 IU/L (10-42); BILIRUBIN,TOTAL 0.9 mg/dL (0.2-1.0); BUN - BLOOD UREA NITROGEN 10 mg/dL (6-20); CARBON DIOXIDE - CO2 27 mmol/L (21-32); CHLORIDE 100 mmol/L (101-111); GLUCOSE 122 mg/dL (70-100); LIPASE 34 U/L (22-51); SALICYLATE < 6.0 mg/dL; SODIUM 140 mmol/L (135-145); TOTAL PROTEIN 6.7 g/dL (6.7-8.2)
--- NOTE | 2019-12-29 16:40 | ED Physician Documentation ---
ED Addendum - Addendum Addendum: 12/29/19 16:39 Patient was signed out to me by the prior emergency department physician. The patient slept for most of the afternoon in the emergency department, when he awoke he states that he last used methamphetamines well over 24 hours ago. He states that he does not want to be here. He refuses to answer most of my questions. He is unable to contract for safety. Does have abrasions to the right side of the neck. No active bleeding. Social work was consulted, patient refuses to speak to her as well. DCR will be dispatched. Patient was signed out to the oncoming emergency department physician.
[2019-12-30 07:35] VITALS: BP 140/73
== END 2019-12-30 09:40 ==
LOC: EDUNIT# → ED 01:15
DX: S10.81XA Abrasion of other specified part of neck, initial encounter (principal); X78.8XXA Intentional self-harm by other sharp object, initial encounter; F15.129 Other stimulant abuse with intoxication, unspecified; F10.10 Alcohol abuse, uncomplicated; Z20.828 Contact with and (suspected) exposure to other viral communicable diseases; F17.200 Nicotine dependence, unspecified, uncomplicated
CPT/HCPCS: 36415; 80053; 80306; 80307; 80320; 80329; 81001; 81003; 83690; 84443; 85025; 87086; 99281; 99285

== ENCOUNTER 2020-06-26 12:15 | Emergency (ER) | payer MEDICAID ==
[2020-06-26] MEDS ORDERED: MAG HYDROX/AL HYDROX/SIMETH 30 ML UDC PO STA (13:05)
[2020-06-26] MEDS ORDERED: LIDOCAINE VISCOUS 2% 15 ML UDC MM STA (13:05)
[2020-06-26] MEDS ORDERED: ONDANSETRON 4 MG/2 ML VIAL IVP STA (13:05)
--- NOTE | 2020-06-26 13:05 | ED Physician Documentation ---
PD HPI ABD PAIN - Stated complaint Stated Complaint: NAUSEA/VOMITING/HEAD PX - Chief complaint Chief Complaint: Abd Pain - History obtained from History obtained from: Patient, Other ([facility] at [phone]) - Additional information Additional information: 44-year-old gentleman with history of substance use. Upon getting out of a substance treatment program a couple of months ago was started on Mavyret for hepatitis C. He has been on it for about 7.5 weeks and stopped a few days ago because about 4 weeks ago he developed nausea and vomiting as well as diffuse abdominal pain. Despite stopping the Mavyret, he continues to have the symptoms. Review of Systems Ten Systems: 10 systems reviewed and negative Constitutional: denies: Fever, Chills Nose: reports: Reviewed and negative Throat: reports: Reviewed and negative Cardiac: reports: Reviewed and negative PD PAST MEDICAL HISTORY - Past Medical History Cardiovascular: None Respiratory: Pneumonia Endocrine/Autoimmune: None, Other GI: None : None Psych: Post traumatic stress disorder Musculoskeletal: Chronic back pain - Past Surgical History Past Surgical History: No - Present Medications Home Medications: Ambulatory Orders Medication Instructions Recorded Confirmed methocarbamoL [Robaxin] 1,000 mg PO BID 10/12/18 06/26/20 Famotidine [Acid-Pep] 20 ng PO DAILY 06/26/20 06/26/20 Omeprazole 40 mg PO DAILY #30 cap 06/26/20 Ondansetron Odt [Zofran] 4 mg TL Q6H PRN #10 tablet 06/26/20 Paliperidone Palmitate [Invega INJ 06/26/20 Sustenna] Risperidone [Risperdal] 3 mg PO BID 06/26/20 06/26/20 hydrOXYzine HCL [Hydroxyzine HCl] 50 mg PO Q8HR PRN 06/26/20 06/26/20 methocarbamoL [Methocarbamol] 750 mg PO BID PRN #20 tablet 06/26/20 - Allergies Allergies/Adverse Reactions: Allergies Allergy/AdvReac Type Severity Reaction Status Date / Time divalproex sodium Allergy Unknown Verified 06/26/20 12:33 [From Depakote] phenytoin sodium * Allergy Unknown Verified 06/26/20 12:33 [From Dilantin] phenytoin sodium extended * Allergy Unknown Verified 06/26/20 12:33 [From Dilantin] - Social History Does the pt smoke?: Yes Smoking Status: Current every day smoker Does the pt drink ETOH?: No Does the pt have substance abuse?: No - Immunizations Immunizations are current?: No Immunizations: TDAP >10years/unknown - POLST Patient has POLST: No PD ED PE NORMAL - Vitals Vital signs reviewed: Yes - General General: Alert and oriented X 3, No acute distress - HEENT HEENT: PERRL, EOMI - Neck Neck: No bony TTP - Cardiac Cardiac: RRR, No murmur - Abdomen Abdomen: Normal bowel sounds, Soft, Non tender, Other (Right upper quadrant linear scar, consistent with pyloric stenosis repair per his description.) - Back Back: No CVA TTP, No spinal TTP - Derm Derm: Normal color, Warm and dry - Extremities Extremities: No edema, No calf tenderness / cord - Neuro Neuro: Alert and oriented X 3, Normal speech Results - Vitals Vitals: Vital Signs - 24 hr 06/26/20 06/26/20 06/26/20 12:28 12:33 14:33 Temperature 36.7 C 36.4 C L Heart Rate 88 62 Respiratory 17 16 Rate Blood Pressure 118/74 128/102 H 115/72 O2 Saturation 100 99 Oxygen O2 Source Room air - Labs Labs: Laboratory Tests 06/26/20 06/26/20 06/26/20 12:56 12:56 14:04 WBC 9.3 RBC 5.23 Hgb 15.4 Hct 46.1 MCV 88.1 MCH 29.4 MCHC 33.4 RDW 13.0 Plt Count 335 MPV 8.9 Neut # (Auto) 5.7 Lymph # (Auto) 2.4 [place] # (Auto) 0.8 Eos # (Auto) 0.3 Baso # (Auto) 0.1 Absolute Nucleated RBC 0.00 Nucleated RBC % 0.0 Sodium 139 Potassium 4.2 Chloride 100 L Carbon Dioxide 29 Anion Gap 10.0 BUN 13 Creatinine 1.0 Estimated GFR (MDRD) 80 L Glucose 64 L Calcium 9.9 Total Bilirubin 0.4 AST 15 ALT 15 Alkaline Phosphatase 71 Total Protein 7.3 Albumin 4.5 Globulin 2.8 Albumin/Globulin Ratio 1.6 Lipase 27 Urine Color DARK YELLOW Urine Clarity CLEAR Urine pH 6.0 Ur Specific [place] 1.020 Urine Protein NEGATIVE Urine Glucose (UA) NEGATIVE Urine Ketones NEGATIVE Urine Occult Blood NEGATIVE Urine Nitrite NEGATIVE Urine Bilirubin NEGATIVE Urine Urobilinogen 0.2 (NORMAL) Ur Leukocyte Esterase NEGATIVE Ur Microscopic Review NOT INDICATED Urine Culture Comments NOT INDICATED Urine Opiates Screen NEGATIVE Ur Oxycodone Screen NEGATIVE Urine Methadone Screen NEGATIVE Ur Propoxyphene Screen NEGATIVE Ur Barbiturates Screen NEGATIVE Ur Tricyclics Screen NEGATIVE Ur Phencyclidine Scrn NEGATIVE Ur Amphetamine Screen POSITIVE H U Methamphetamines Scrn POSITIVE H U Benzodiazepines Scrn NEGATIVE Urine Cocaine Screen NEGATIVE U Cannabinoids Screen NEGATIVE PD MEDICAL DECISION MAKING - ED course ED course: 44-year-old with abdominal pain presents with vomiting without diarrhea, potentially related to Mavyret use. Benign exam here and feeling better after meds. Passed p.o. challenge and remained nontender on reexamination at 3:30 PM just prior to discharge. Diagnostics were negative except for the methamphetamine in his urine, he denies a relapse. Departure - Departure Disposition: 01 Home, Self Care Clinical Impression: Vomiting Qualifiers: Vomiting type: unspecified Vomiting Intractability: non-intractable Nausea presence: with nausea Qualified Code(s): R11.2 - Nausea with vomiting, unspecified Abdominal pain Qualifiers: Abdominal location: generalized Qualified Code(s): R10.84 - Generalized abdominal pain Condition: Stable Record reviewed to determine appropriate education?: Yes Instructions: ED Abdominal Pain Unkn Cause Male Prescriptions: methocarbamoL [Methocarbamol] 750 mg PO BID PRN #20 tablet PRN Reason: Spasms Omeprazole 40 mg PO DAILY #30 cap Ondansetron Odt [Zofran] 4 mg TL Q6H PRN #10 tablet PRN Reason: Nausea / Vomiting Comments: As discussed, you do need to follow-up with the previous clinic to recheck for test of cure for hepatitis C, return for new or worsening symptoms. Follow-up with your primary care physician regardless.
[2020-06-26 13:06] LABS: BASOPHILS # (AUTO) 0.1 10^3/uL (0.0-0.1); BASOPHILS % (AUTO) 0.9 %; EOSINOPHILS # (AUTO) 0.3 10^3/uL (0.0-0.7); HCT - HEMATOCRIT 46.1 % (42.0-52.0); HGB - HEMOGLOBIN 15.4 g/dL (14.0-18.0); LYMPHOCYTES # (AUTO) 2.4 10^3/uL (1.5-3.5); LYMPHOCYTES % (AUTO) 25.8 %; MEAN CORPUSCULAR HEMOGLOBIN 29.4 pg (27.0-31.0); MEAN CORPUSCULAR HGB CONC 33.4 g/dL (32.0-36.0); MEAN CORPUSCULAR VOLUME 88.1 fL (80.0-94.0); MEAN PLATELET VOLUME 8.9 fL (7.4-11.4); MONOCYTES # (AUTO) 0.8 10^3/uL (0.0-1.0); MONOCYTES % (AUTO) 8.2 %; NEUTROPHILS # (AUTO) 5.7 10^3/uL (1.5-6.6); NEUTROPHILS % (AUTO) 61.8 %; PLT - PLATELET COUNT 335 10^3/uL (130-450); RED BLOOD COUNT 5.23 10^6/uL (4.70-6.10); WHITE BLOOD COUNT 9.3 x10^3/uL (4.8-10.8)
[2020-06-26] MEDS ORDERED: SODIUM CHLORIDE 0.9% 1,000 ML IV STA (13:06)
[2020-06-26] MEDS ORDERED: PANTOPRAZOLE 40 MG VIAL IVP STA (13:06)
[2020-06-26 13:19] LABS: ALBUMIN 4.5 g/dL (3.2-5.5); ALBUMIN/GLOBULIN RATIO 1.6 (1.0-2.2); BILIRUBIN,TOTAL 0.4 mg/dL (0.2-1.0); CALCIUM 9.9 mg/dL (8.5-10.3); POTASSIUM 4.2 mmol/L (3.5-5.0); TOTAL PROTEIN 7.3 g/dL (6.7-8.2)
[2020-06-26] MEDS ORDERED: METOCLOPRAMIDE 10 MG/2 ML VIAL IVP STA (14:17)
[2020-06-26] MEDS ORDERED: IOPAMIDOL-300 100 ML VIAL ONE (14:21)
[2020-06-26 14:56] LABS: MUDS CUTOFF CONCENTRATIONS CUTOFF CONC BELOW:
[2020-06-26 14:58] LABS: BILIRUBIN,URINE NEGATIVE (NEGATIVE); GLUCOSE, URINE (UA) NEGATIVE (NEGATIVE); KETONES,URINE (UA) NEGATIVE (NEGATIVE); LEUKOCYTE ESTERASE, URINE NEGATIVE (NEGATIVE); NITRITE,URINE NEGATIVE (NEGATIVE); OCCULT BLOOD,URINE NEGATIVE (NEGATIVE); PROTEIN,URINE NEGATIVE (NEGATIVE); UROBILINOGEN,URINE 0.2 (NORMAL) E.U./dL (NORMAL)
[2020-06-26 14:59] LABS: CLARITY,URINE CLEAR (CLEAR)
[2020-06-26 15:09] LABS: AMPHETAMINE SCREEN,URINE POSITIVE (NEGATIVE); BARBITURATE SCREEN,UR NEGATIVE (NEGATIVE); BENZODIAZEPINES SCREEN, URINE NEGATIVE (NEGATIVE); COCAINE SCREEN URINE NEGATIVE (NEGATIVE); METHADONE SCREEN, URINE NEGATIVE (NEGATIVE); METHAMPHETAMINES SCREEN, URINE POSITIVE (NEGATIVE); OPIATE SCREEN, URINE NEGATIVE (NEGATIVE); OXYCODONE SCREEN, URINE NEGATIVE (NEGATIVE); PROPOXYPHENE SCREEN, URINE NEGATIVE (NEGATIVE); THC CANNABINOID SCREEN, URINE NEGATIVE (NEGATIVE); TRICYCLIC ANTIDEPRESSANT,URINE NEGATIVE (NEGATIVE)
--- NOTE | 2020-06-26 15:15 | CT Report ---
PROCEDURE: Abdomen/Pelvis W INDICATIONS: IV only, central abd pain CONTRAST: IV CONTRAST: Isovue 300 ml: 100 PO CONTRAST: *NO PO CONTRAST TECHNIQUE: After the administration of weight appropriate dose of intravenous contrast, 5 mm thick sections acqu ired from the diaphragms to the symphysis. 5 mm thick coronal and sagittal reformats were acquired. For radiation dose reduction, the following was used: automated exposure control, adjustment of mA and/or kV according to patient size. COMPARISON: 07/08/2016 FINDINGS: Image quality: Excellent. ABDOMEN: Lung bases: Lung bases are clear. Heart size is normal. Solid organs: Liver and spleen are normal in size and enhancement. Gallbladder is decompressed but otherwise unremarkable. Biliary system is non dilated. Pancreas enhances normally. No adrenal nodu les. Kidneys demonstrate normal size and enhancement, without hydronephrosis. Stable left renal cyst s. Peritoneum and bowel: Bowel loops demonstrate normal wall thickness and caliber. No free fluid or a ir. The appendix is not definitively visualized. However, no secondary findings for acute inflammato ry change. Nodes and vessels: No retroperitoneal or mesenteric adenopathy by size criteria. Aorta and inferior vena cava are normal in size. Miscellaneous: No ventral hernias. PELVIS: Genitourinary: Bladder wall thickness is normal for degree of bladder distention. Miscellaneous: No inguinal hernias or adenopathy. Bones: No suspicious bony lesions. No acute vertebral body compression fractures. IMPRESSION: 1. CT abdomen and pelvis without acute abnormalities to explain patient's symptoms. 2. The appendix is not definitively visualized; however, no secondary findings for acute inflammatory changes. Reviewed by: Cyrus Gamboa MD on 06/26/2020 3:13 PM PDT Approved by: Cyrus Gamboa MD on 06/26/2020 3:13 PM PDT Station ID: [id number]
[2020-06-26] MEDS ORDERED: IOPAMIDOL-300 100 ML VIAL IVP ONE (15:32)
[2020-06-26 15:56] VITALS: BP 116/74
== END 2020-06-26 15:55 | disposition home or self-care (01) ==
LOC: ED 12:15
DX: R10.84 Generalized abdominal pain (principal); R11.2 Nausea with vomiting, unspecified; R82.5 Elevated urine levels of drugs, medicaments and biological substances; B19.20 Unspecified viral hepatitis C without hepatic coma; F17.200 Nicotine dependence, unspecified, uncomplicated; F43.10 Post-traumatic stress disorder, unspecified
CPT/HCPCS: 36415; 74177; 80053; 80306; 81003; 83690; 85025; 96374; 96375; 99284; A9270; J2765; Q9967; 81001; 87086

== ENCOUNTER 2020-07-14 08:00 | Outpatient (CLI) | payer MEDICAID ==
--- NOTE | 2020-07-14 20:57 | XRAY Report ---
PROCEDURE: Shoulder 3 View RT INDICATIONS: RIGHT SHOULDER PAIN TECHNIQUE: 3 views of the shoulder were acquired. COMPARISON: None. FINDINGS: Bones: No fractures or dislocations. No suspicious bony lesions. Visualized ribs appear intact. Mi ld acromioclavicular joint osteoarthritis. Soft tissues: Calcification noted adjacent to the lateral margin of the humeral head compatible with calcific tendinitis. IMPRESSION: 1. Right shoulder rotator cuff calcific tendinitis. 2. Mild right acromioclavicular joint osteoarthritis. Reviewed by: Renetta Sanabria MD, PhD on 07/14/2020 8:56 PM PDT Approved by: Renetta Sanabria MD, PhD on 07/14/2020 8:56 PM PDT Station ID: [id number]
== END 2020-07-14 23:59 | disposition home or self-care (01) ==
LOC: DI.S 08:00
PROVIDERS: ATTEND Physician Assistant Medical
DX: M25.511 Pain in right shoulder (principal); M75.101 Unspecified rotator cuff tear or rupture of right shoulder, not specified as traumatic; M19.011 Primary osteoarthritis, right shoulder

== ENCOUNTER 2020-10-27 23:29 | Outpatient (CLI) | payer MEDICAID | END 2020-10-27 23:30 | disposition critical access hospital (66) | LOC: EMS 23:29 | DX: R41.0 Disorientation, unspecified (principal) | CPT/HCPCS: A0425; A0429; A0999 ==

== ENCOUNTER 2020-10-27 23:54 | Emergency (ER) | payer MEDICAID ==
[2020-10-27] MEDS ORDERED: HALOPERIDOL 5 MG/ML VIAL IM STA (23:59)
[2020-10-27] MEDS ORDERED: LORazepam 2 MG/ML VIAL IM STA (23:59)
[2020-10-28 00:49] LABS: BASOPHILS # (AUTO) 0.1 10^3/uL (0.0-0.1); BASOPHILS % (AUTO) 0.7 %; EOSINOPHILS # (AUTO) 0.1 10^3/uL (0.0-0.7); EOSINOPHILS % (AUTO) 0.6 %; HCT - HEMATOCRIT 44.9 % (42.0-52.0); HGB - HEMOGLOBIN 15.1 g/dL (14.0-18.0); LYMPHOCYTES # (AUTO) 1.7 10^3/uL (1.5-3.5); LYMPHOCYTES % (AUTO) 11.8 %; MEAN CORPUSCULAR HEMOGLOBIN 30.3 pg (27.0-31.0); MEAN CORPUSCULAR HGB CONC 33.6 g/dL (32.0-36.0); MEAN PLATELET VOLUME 8.2 fL (7.4-11.4); MONOCYTES # (AUTO) 1.1 10^3/uL (0.0-1.0); MONOCYTES % (AUTO) 7.1 %; NEUTROPHILS # (AUTO) 11.6 10^3/uL (1.5-6.6); NEUTROPHILS % (AUTO) 79.4 %; PLT - PLATELET COUNT 392 10^3/uL (130-450); RED BLOOD COUNT 4.99 10^6/uL (4.70-6.10); RED CELL DISTRIBUTION WIDTH 12.9 % (12.0-15.0); WHITE BLOOD COUNT 14.7 x10^3/uL (4.8-10.8)
[2020-10-28 01:06] LABS: ACETAMINOPHEN < 10 ug/mL (10-30); ALBUMIN 4.8 g/dL (3.2-5.5); ALBUMIN/GLOBULIN RATIO 1.6 (1.0-2.2); ALKALINE PHOSPHATASE 69 IU/L (42-121); ALT ALANINE AMINOTRANSFERASE 16 IU/L (10-60); AST ASPARTATE AMINOTRANSFERASE 22 IU/L (10-42); BILIRUBIN,TOTAL 0.4 mg/dL (0.2-1.0); BUN - BLOOD UREA NITROGEN 11 mg/dL (6-20); CALCIUM 9.7 mg/dL (8.5-10.3); CARBON DIOXIDE - CO2 26 mmol/L (21-32); CHLORIDE 103 mmol/L (101-111); CK- CREATINE KINASE 317 IU/L (22-269); CREATININE 1.3 mg/dL (0.6-1.2); ETOH - ETHANOL < 5.0 mg/dL; GFR - MDRD 59 (>89); GLUCOSE 95 mg/dL (70-100); LIPASE 27 U/L (22-51); POTASSIUM 3.5 mmol/L (3.5-5.0); SALICYLATE < 6.0 mg/dL; SODIUM 143 mmol/L (135-145); TOTAL PROTEIN 7.8 g/dL (6.7-8.2)
[2020-10-28] MEDS ORDERED: SODIUM CHLORIDE 0.9% 1,000 ML IV STA ×2 (02:01→05:36)
--- NOTE | 2020-10-28 02:59 | ED Physician Documentation ---
History of Present Illness - Stated complaint Stated Complaint: MHE - Chief complaint Chief Complaint: MHE - History obtained from History obtained from: EMS - Additonal information Additional information: 44-year-old man presents, acutely intoxicated with methamphetamine. EMS reports that patient was speeding down the freeway, got out of his vehicle and was running on the freeway waving a stick around people. He confided with EMS that he had smoked methamphetamine earlier in the day. Patient without complaints here in the emergency department, however he was actively agitated, and physical restraints upon EMS arrival. Unable to obtain history 2/2 uncooperativity, acute agitation/intoxication. Review of Systems Unable to obtain: Uncooperative PD PAST MEDICAL HISTORY - Past Medical History Past Medical History: Yes Cardiovascular: None Respiratory: Pneumonia Endocrine/Autoimmune: None, Other GI: None : None Psych: Post traumatic stress disorder Musculoskeletal: Chronic back pain - Past Surgical History Past Surgical History: No - Present Medications Home Medications: Ambulatory Orders Medication Instructions Recorded Confirmed methocarbamoL [Robaxin] 1,000 mg PO BID 10/12/18 06/26/20 Famotidine [Acid-Pep] 20 ng PO DAILY 06/26/20 06/26/20 Omeprazole 40 mg PO DAILY #30 cap 06/26/20 Ondansetron Odt [Zofran] 4 mg TL Q6H PRN #10 tablet 06/26/20 Paliperidone Palmitate [Invega INJ 06/26/20 Sustenna] hydrOXYzine HCL [Hydroxyzine HCl] 50 mg PO Q8HR PRN 06/26/20 06/26/20 methocarbamoL [Methocarbamol] 750 mg PO BID PRN #20 tablet 06/26/20 risperiDONE [Risperdal] 3 mg PO BID 06/26/20 06/26/20 - Allergies Allergies/Adverse Reactions: Allergies Allergy/AdvReac Type Severity Reaction Status Date / Time divalproex sodium Allergy Unknown Verified 06/26/20 12:33 [From Depakote] phenytoin sodium * Allergy Unknown Verified 06/26/20 12:33 [From Dilantin] phenytoin sodium extended * Allergy Unknown Verified 06/26/20 12:33 [From Dilantin] - Social History Does the pt smoke?: Yes Smoking Status: Current every day smoker Does the pt drink ETOH?: Yes Does the pt have substance abuse?: Yes Substance Use and Type: Meth - Immunizations Immunizations are current?: No Immunizations: TDAP >10years/unknown - POLST Patient has POLST: No PD ED PE NORMAL - Vitals Vital signs reviewed: Yes - General General: Other (agitated, disheveled) - HEENT HEENT: Atraumatic, PERRL, EOMI - Neck Neck: Supple, no meningeal sign - Cardiac Cardiac: Other (Borderline tachycardic rate, regular rhythm) - Respiratory Respiratory: No respiratory distress, Clear bilaterally - Abdomen Abdomen: Non tender, Non distended - Back Back: No spinal TTP - Derm Derm: Normal color, Warm and dry - Extremities Extremities: No deformity - Neuro Neuro: Other (Acutely agitated) - Psych Psych: Other (Intoxicated with methamphetamine) Results - Vitals Vitals: Vital Signs - 24 hr 10/28/20 10/28/20 10/28/20 00:12 00:26 00:31 Temperature 36.2 C L Heart Rate 127 H 104 H 96 Respiratory 22 20 16 Rate Blood Pressure 113/98 H 131/106 H 112/87 H O2 Saturation 94 95 10/28/20 10/28/20 10/28/20 01:11 01:30 01:55 Temperature Heart Rate 94 100 96 Respiratory 14 14 13 Rate Blood Pressure 110/88 H 129/92 H 129/92 H O2 Saturation 97 98 98 10/28/20 05:38 Temperature Heart Rate 87 Respiratory 14 Rate Blood Pressure 122/89 H O2 Saturation 98 Oxygen O2 Source Room air - EKG (time done) 0046 Rate: Rate (enter#) (97) Rhythm: NSR [place]: Normal Intervals: Normal NC, Other (normal QT) QRS: Normal Ischemia: Normal ST segments - Labs Labs: Laboratory Tests 10/28/20 10/28/20 10/28/20 00:37 00:37 00:37 WBC 14.7 H RBC 4.99 Hgb 15.1 Hct 44.9 MCV 90.0 MCH 30.3 MCHC 33.6 RDW 12.9 Plt Count 392 MPV 8.2 Neut # (Auto) 11.6 H Lymph # (Auto) 1.7 [place] # (Auto) 1.1 H Eos # (Auto) 0.1 Baso # (Auto) 0.1 Absolute Nucleated RBC 0.00 Nucleated RBC % 0.0 Sodium 143 Potassium 3.5 Chloride 103 Carbon Dioxide 26 Anion Gap 14.0 H BUN 11 Creatinine 1.3 H Estimated GFR (MDRD) 59 L Glucose 95 Calcium 9.7 Total Bilirubin 0.4 AST 22 ALT 16 Alkaline Phosphatase 69 Total Creatine Kinase 317 H Total Protein 7.8 Albumin 4.8 Globulin 3.0 Albumin/Globulin Ratio 1.6 Lipase 27 TSH 1.70 Salicylates < 6.0 Acetaminophen < 10 L Ethyl Alcohol < 5.0 PD MEDICAL DECISION MAKING - ED course ED course: 44-year-old man presents with acute methamphetamine intoxication, running around on the freeway waving a stick at people. In the emergency department he was agitated, restrained by EMS with physical restraints. Attempted to modify the environment, reassure the patient, and he was uncooperative and acutely agitated, intoxicated. Chemical sedation ordered for agitated delirium and physical restraints were removed. Patient now resting comfortably in NAD. Patient slept comfortably overnight. YESSICA. Endorsed to Dr. Chang, adama MARINO for SW eval pending sobriety.
--- NOTE | 2020-10-28 03:06 | ED Physician Documentation ---
Face to Face for Restraints - Immediate Situation Face to Face Evaluation Date: 10/28/20 Face to Face Evaluation Time: 01:00 Restraint Situation: Chemical Patient's Reactions to the Intervention: Resting quietly - Behavioral Condition Attitude: Open Behavior: Uncooperative, Belligerent, Agitated Orientation: Not oriented to person, place, time, and situation Mood: Labile Behavioral Condition Comments: Acutely agitated with methamphetamine intoxication. - Evaluation Review of Systems: Review of systems unable to be obtained secondary to methamphetamine intoxication Pertinent History/Illicit Drugs/Medications/Results: 44-year-old man presented with methamphetamine intoxication, agitated delirium, and belligerent behavior waving a stick at people in the freeway. - Plan Need to Continue or Terminate Violent or Chemical Restraint: Patient responded well to Haldol and Ativan administration and is resting comfortably in bed. Physical restraints that EMS had on have been removed and he is resting quietly. Will reevaluate regularly.
--- NOTE | 2020-10-28 09:53 | ED Physician Documentation ---
ED Addendum - Addendum Addendum: 10/28/20 09:52 Patient is awake, alert and oriented x3. Appears to be coming down from the methamphetamine use. Social work consulted, patient offered rehab, does not want to go to rehab. Is not suicidal or homicidal. No emergency medical condition at this time. Patient will be discharged home. This document was made in part using voice recognition software. While efforts are made to proofread this document, sound alike and grammatical errors may occur. Departure - Departure Disposition: 01 Home, Self Care Clinical Impression: Methamphetamine abuse Condition: Stable Instructions: ED Drug Abuse General Follow-Up: AFSANEH TOVAR PA-C [Primary Care Provider] - Within 1 week Comments: Follow-up with your doctor for further care. You should stop using any illicit drugs including methamphetamine.
[2020-10-28 10:25] VITALS: BP 133/103
== END 2020-10-28 11:51 | disposition home or self-care (01) ==
LOC: EDUNIT# → SUPCPDRO 23:54 → ED 23:54
DX: F15.129 Other stimulant abuse with intoxication, unspecified (principal); F17.200 Nicotine dependence, unspecified, uncomplicated
CPT/HCPCS: 36415; 80053; 80307; 80320; 80329; 82550; 83690; 84443; 85025; 93005; 96360; 96361; 96372; 99281; 99285; J2060

== ENCOUNTER 2020-10-29 09:23 | Outpatient (CLI) | payer MEDICAID | END 2020-10-29 09:24 | disposition critical access hospital (66) | LOC: EMS 09:23 | DX: R45.851 Suicidal ideations (principal); R46.89 Other symptoms and signs involving appearance and behavior | CPT/HCPCS: A0425; A0429; A0999 ==

== ENCOUNTER 2020-10-29 10:02 | Emergency (ER) | payer MEDICAID ==
[2020-10-29 10:23] LABS: MUDS CUTOFF CONCENTRATIONS CUTOFF CONC BELOW:
[2020-10-29 10:25] LABS: BILIRUBIN,URINE NEGATIVE (NEGATIVE); GLUCOSE, URINE (UA) NEGATIVE (NEGATIVE); KETONES,URINE (UA) NEGATIVE (NEGATIVE); LEUKOCYTE ESTERASE, URINE NEGATIVE (NEGATIVE); NITRITE,URINE NEGATIVE (NEGATIVE); OCCULT BLOOD,URINE NEGATIVE (NEGATIVE); PROTEIN,URINE NEGATIVE (NEGATIVE); UROBILINOGEN,URINE 0.2 (NORMAL) E.U./dL (NORMAL)
--- NOTE | 2020-10-29 10:27 | ED Physician Documentation ---
PD HPI MHE - Stated complaint Stated Complaint: SI - Chief complaint Chief Complaint: MHE - History obtained from History obtained from: Patient - Additional information Additional information: 44-year-old gentleman presents by ambulance for suicidal ideation with plan to cut his neck with a sword. Says he tried it but did not quite have the ability to do it. States he has not used methamphetamine since his last visit here. Review of Systems Ten Systems: 10 systems reviewed and negative Constitutional: reports: Reviewed and negative Eyes: reports: Reviewed and negative Ears: reports: Reviewed and negative PD PAST MEDICAL HISTORY - Past Medical History Cardiovascular: None Respiratory: Pneumonia Endocrine/Autoimmune: None, Other GI: None : None Psych: Post traumatic stress disorder Musculoskeletal: Chronic back pain - Past Surgical History Past Surgical History: No - Present Medications Home Medications: Ambulatory Orders Medication Instructions Recorded Confirmed methocarbamoL [Robaxin] 1,000 mg PO BID 10/12/18 06/26/20 Famotidine [Acid-Pep] 20 ng PO DAILY 06/26/20 06/26/20 Omeprazole 40 mg PO DAILY #30 cap 06/26/20 Ondansetron Odt [Zofran] 4 mg TL Q6H PRN #10 tablet 06/26/20 Paliperidone Palmitate [Invega INJ 06/26/20 Sustenna] hydrOXYzine HCL [Hydroxyzine HCl] 50 mg PO Q8HR PRN 06/26/20 06/26/20 methocarbamoL [Methocarbamol] 750 mg PO BID PRN #20 tablet 06/26/20 risperiDONE [Risperdal] 3 mg PO BID 06/26/20 06/26/20 - Allergies Allergies/Adverse Reactions: Allergies Allergy/AdvReac Type Severity Reaction Status Date / Time divalproex sodium Allergy Unknown Verified 10/29/20 10:13 [From Depakote] phenytoin sodium * Allergy Unknown Verified 10/29/20 10:13 [From Dilantin] phenytoin sodium extended * Allergy Unknown Verified 10/29/20 10:13 [From Dilantin] - Social History Does the pt smoke?: Yes Smoking Status: Current every day smoker Does the pt drink ETOH?: Yes Does the pt have substance abuse?: Yes - Immunizations Immunizations are current?: No Immunizations: TDAP >10years/unknown - POLST Patient has POLST: No PD ED PE NORMAL - Vitals Vital signs reviewed: Yes - General General: Alert and oriented X 3, Other (Mumbling speech) - HEENT HEENT: PERRL, EOMI - Neck Neck: Supple, no meningeal sign, No bony TTP - Cardiac Cardiac: RRR, No murmur - Respiratory Respiratory: No respiratory distress, Clear bilaterally - Abdomen Abdomen: Normal bowel sounds, Soft, Non tender - Back Back: No CVA TTP, No spinal TTP - Derm Derm: Normal color, Warm and dry - Neuro Neuro: Alert and oriented X 3, Normal speech - Psych Psych: Normal mood, Normal affect Results - Vitals Vitals: Vital Signs - 24 hr 10/29/20 10/29/20 10/29/20 10:12 16:44 17:45 Temperature 37.1 C 36.9 C 36.6 C Heart Rate 86 78 70 Respiratory 18 18 18 Rate Blood Pressure 132/73 H 137/82 H 140/80 H O2 Saturation 100 98 98 Oxygen O2 Source Room air - Labs Labs: Laboratory Tests 10/29/20 10/29/20 10/29/20 10:14 10:30 10:30 WBC 8.9 RBC 4.47 L Hgb 13.6 L Hct 40.5 L MCV 90.6 MCH 30.4 MCHC 33.6 RDW 13.0 Plt Count 337 MPV 8.5 Neut # (Auto) 5.2 Lymph # (Auto) 2.8 [place] # (Auto) 0.6 Eos # (Auto) 0.2 Baso # (Auto) 0.1 Absolute Nucleated RBC 0.00 Nucleated RBC % 0.0 Sodium 138 Potassium 3.3 L Chloride 102 Carbon Dioxide 27 Anion Gap 9.0 BUN 10 Creatinine 1.0 Estimated GFR (MDRD) 80 L Glucose 94 Calcium 9.1 Total Bilirubin 0.7 AST 35 ALT 21 Alkaline Phosphatase 53 Total Protein 6.8 Albumin 4.1 Globulin 2.7 Albumin/Globulin Ratio 1.5 Lipase 24 TSH Urine Color YELLOW Urine Clarity CLEAR Urine pH 6.0 Ur Specific [place] >=1.030 H Urine Protein NEGATIVE Urine Glucose (UA) NEGATIVE Urine Ketones NEGATIVE Urine Occult Blood NEGATIVE Urine Nitrite NEGATIVE Urine Bilirubin NEGATIVE Urine Urobilinogen 0.2 (NORMAL) Ur Leukocyte Esterase NEGATIVE Ur Microscopic Review NOT INDICATED Urine Culture Comments NOT INDICATED Nasal Adenovirus (PCR) Nasal B. parapertussis DNA (PCR) Nasal Coronavir 229E PCR Nasal Coronavir HKU1 PCR Nasal Coronavir NL63 PCR Nasal Coronavir OC43 PCR Nasal Enterovir/Rhinovir PCR Nasal Influenza B PCR Nasal Influenza A PCR Nasal Parainfluen 1 PCR Nasal Parainfluen 2 PCR Nasal Parainfluen 3 PCR Nasal Parainfluen 4 PCR Nasal RSV (PCR) Nasal B.pertussis DNA PCR Nasal C.pneumoniae (PCR) Bro Human Metapneumo PCR Nasal M.pneumoniae (PCR) Nasal SARS-CoV-2 (PCR) Salicylates < 6.0 Urine Opiates Screen NEGATIVE Ur Oxycodone Screen NEGATIVE Urine Methadone Screen NEGATIVE Ur Propoxyphene Screen NEGATIVE Acetaminophen < 10 L Ur Barbiturates Screen NEGATIVE Ur Tricyclics Screen NEGATIVE Ur Phencyclidine Scrn NEGATIVE Ur Amphetamine Screen POSITIVE H U Methamphetamines Scrn POSITIVE H U Benzodiazepines Scrn POSITIVE H Urine Cocaine Screen NEGATIVE U Cannabinoids Screen NEGATIVE Ethyl Alcohol < 5.0 10/29/20 10/29/20 10:30 10:30 WBC RBC Hgb Hct MCV MCH MCHC RDW Plt Count MPV Neut # (Auto) Lymph # (Auto) [place] # (Auto) Eos # (Auto) Baso # (Auto) Absolute Nucleated RBC Nucleated RBC % Sodium Potassium Chloride Carbon Dioxide Anion Gap BUN Creatinine Estimated GFR (MDRD) Glucose Calcium Total Bilirubin AST ALT Alkaline Phosphatase Total Protein Albumin Globulin Albumin/Globulin Ratio Lipase TSH 0.89 Urine Color Urine Clarity Urine pH Ur Specific [place] Urine Protein Urine Glucose (UA) Urine Ketones Urine Occult Blood Urine Nitrite Urine Bilirubin Urine Urobilinogen Ur Leukocyte Esterase Ur Microscopic Review Urine Culture Comments Nasal Adenovirus (PCR) NOT DETECTED Nasal B. parapertussis DNA (PCR) NOT DETECTED Nasal Coronavir 229E PCR NOT DETECTED Nasal Coronavir HKU1 PCR NOT DETECTED Nasal Coronavir NL63 PCR NOT DETECTED Nasal Coronavir OC43 PCR NOT DETECTED Nasal Enterovir/Rhinovir PCR NOT DETECTED Nasal Influenza B PCR NOT DETECTED Nasal Influenza A PCR NOT DETECTED Nasal Parainfluen 1 PCR NOT DETECTED Nasal Parainfluen 2 PCR NOT DETECTED Nasal Parainfluen 3 PCR NOT DETECTED Nasal Parainfluen 4 PCR NOT DETECTED Nasal RSV (PCR) NOT DETECTED Nasal B.pertussis DNA PCR NOT DETECTED Nasal C.pneumoniae (PCR) NOT DETECTED Bro Human Metapneumo PCR NOT DETECTED Nasal M.pneumoniae (PCR) NOT DETECTED Nasal SARS-CoV-2 (PCR) NOT DETECTED Salicylates Urine Opiates Screen Ur Oxycodone Screen Urine Methadone Screen Ur Propoxyphene Screen Acetaminophen Ur Barbiturates Screen Ur Tricyclics Screen Ur Phencyclidine Scrn Ur Amphetamine Screen U Methamphetamines Scrn U Benzodiazepines Scrn Urine Cocaine Screen U Cannabinoids Screen Ethyl Alcohol PD MEDICAL DECISION MAKING - ED course ED course: Seen by social media marketing manager and subsequently the DCR who detained him and a bed was found, code was completed, he is stable for transport. Departure - Departure Disposition: 65 Psych Hosp/Unit DC/Xfer Clinical Impression: Methamphetamine abuse, Suicidal ideation Condition: Stable Discharge Date/Time: 10/29/20 18:03
[2020-10-29 10:28] LABS: CLARITY,URINE CLEAR (CLEAR)
[2020-10-29 10:37] LABS: BASOPHILS # (AUTO) 0.1 10^3/uL (0.0-0.1); BASOPHILS % (AUTO) 0.8 %; EOSINOPHILS # (AUTO) 0.2 10^3/uL (0.0-0.7); EOSINOPHILS % (AUTO) 2.3 %; HCT - HEMATOCRIT 40.5 % (42.0-52.0); HGB - HEMOGLOBIN 13.6 g/dL (14.0-18.0); LYMPHOCYTES # (AUTO) 2.8 10^3/uL (1.5-3.5); LYMPHOCYTES % (AUTO) 31.3 %; MEAN CORPUSCULAR HEMOGLOBIN 30.4 pg (27.0-31.0); MEAN CORPUSCULAR HGB CONC 33.6 g/dL (32.0-36.0); MEAN CORPUSCULAR VOLUME 90.6 fL (80.0-94.0); MEAN PLATELET VOLUME 8.5 fL (7.4-11.4); MONOCYTES # (AUTO) 0.6 10^3/uL (0.0-1.0); MONOCYTES % (AUTO) 6.9 %; NEUTROPHILS # (AUTO) 5.2 10^3/uL (1.5-6.6); NEUTROPHILS % (AUTO) 58.4 %; PLT - PLATELET COUNT 337 10^3/uL (130-450); RED BLOOD COUNT 4.47 10^6/uL (4.70-6.10); WHITE BLOOD COUNT 8.9 x10^3/uL (4.8-10.8)
[2020-10-29 10:38] LABS: AMPHETAMINE SCREEN,URINE POSITIVE (NEGATIVE); BARBITURATE SCREEN,UR NEGATIVE (NEGATIVE); BENZODIAZEPINES SCREEN, URINE POSITIVE (NEGATIVE); COCAINE SCREEN URINE NEGATIVE (NEGATIVE); METHADONE SCREEN, URINE NEGATIVE (NEGATIVE); METHAMPHETAMINES SCREEN, URINE POSITIVE (NEGATIVE); OPIATE SCREEN, URINE NEGATIVE (NEGATIVE); OXYCODONE SCREEN, URINE NEGATIVE (NEGATIVE); PROPOXYPHENE SCREEN, URINE NEGATIVE (NEGATIVE); THC CANNABINOID SCREEN, URINE NEGATIVE (NEGATIVE); TRICYCLIC ANTIDEPRESSANT,URINE NEGATIVE (NEGATIVE)
[2020-10-29 10:55] LABS: ACETAMINOPHEN < 10 ug/mL (10-30); ALBUMIN 4.1 g/dL (3.2-5.5); ALBUMIN/GLOBULIN RATIO 1.5 (1.0-2.2); ALKALINE PHOSPHATASE 53 IU/L (42-121); ALT ALANINE AMINOTRANSFERASE 21 IU/L (10-60); AST ASPARTATE AMINOTRANSFERASE 35 IU/L (10-42); BILIRUBIN,TOTAL 0.7 mg/dL (0.2-1.0); BUN - BLOOD UREA NITROGEN 10 mg/dL (6-20); CALCIUM 9.1 mg/dL (8.5-10.3); CARBON DIOXIDE - CO2 27 mmol/L (21-32); CHLORIDE 102 mmol/L (101-111); ETOH - ETHANOL < 5.0 mg/dL; GFR - MDRD 80 (>89); GLUCOSE 94 mg/dL (70-100); LIPASE 24 U/L (22-51); POTASSIUM 3.3 mmol/L (3.5-5.0); SALICYLATE < 6.0 mg/dL; SODIUM 138 mmol/L (135-145); TOTAL PROTEIN 6.8 g/dL (6.7-8.2)
[2020-10-29 12:23] LABS: B. PARAPERTUSSIS- RESP PCR PAN NOT DETECTED; B. PERTUSSIS- RESP PCR PANEL NOT DETECTED; C. PNEUMONIAE- RESP PCR PANEL NOT DETECTED; CORONAVIRUS 229E-RESP PCR NOT DETECTED; CORONAVIRUS HKU1-RESP PCR NOT DETECTED; CORONAVIRUS NL63-RESP PCR NOT DETECTED; CORONAVIRUS OC43-RESP PCR NOT DETECTED; HUMAN METAPNEUMOVIRUS NOT DETECTED; INFLUENZA A- RESP PCR PANEL NOT DETECTED; INFLUENZA B - RESP PCR PANEL NOT DETECTED; M. PNEUMONIAE- RESP PCR PANEL NOT DETECTED; PARAINFLUENZA VIRUS 1 NOT DETECTED; PARAINFLUENZA VIRUS 2 NOT DETECTED; PARAINFLUENZA VIRUS 3 NOT DETECTED; PARAINFLUENZA VIRUS 4 NOT DETECTED; RHINOVIRUS/ENTEROVIRUS NOT DETECTED; RSV- RESP PCR PANEL NOT DETECTED; SARS-CoV-2 -RESP PCR PANEL NOT DETECTED
[2020-10-29] MEDS ORDERED: ACETAMINOPHEN 325 MG TABLET PO STA (14:12)
[2020-10-29] MEDS ORDERED: IBUPROFEN 800 MG TABLET PO STA (16:32)
[2020-10-29 17:48] VITALS: BP 140/80
== END 2020-10-29 18:03 ==
LOC: EDUNIT# → ED 10:02
DX: F15.10 Other stimulant abuse, uncomplicated (principal); R45.851 Suicidal ideations; Z20.822 Contact with and (suspected) exposure to COVID-19; F17.200 Nicotine dependence, unspecified, uncomplicated
CPT/HCPCS: 0202U; 36415; 80053; 80306; 80307; 80320; 80329; 81003; 83690; 84443; 85025; 93005; 99283; 99285; A9270; 81001; 87086